=== PATIENT | female | born 1960 | race Caucasian/White ===

== ENCOUNTER 2020-02-05 12:30 | Inpatient (IN) | payer OTHER ==
--- NOTE | 2020-02-05 12:43 | BHS.RME ---
Substance Use & Tx History - Substance Use History Alcohol Substance amount: 1 liter vodka + 2 beers Frequency of use: Daily Substance route: Oral Date of Last Use: 02/05/20 (started age 21 last drank 2AM today) Nicotine Substance amount: 1t Frequency of use: Less than 3 times per week Substance route: Vaping Date of Last Use: 02/05/20 (started age 57) Physical/Psych/Mental Status - Behavior General Behavior: Increased activity (restlessness, agitation) Eye Contact: Normal - Cooperativeness Cooperativeness: Cooperative - Thinking Thought Processes: Tight, Logical, Goal Directed Thought content: Future oriented - Physical Health Problems Is patient presently having any pain?: No Does patient presently have any injuries (include location): No Does patient currently have a fever: No Is patient : No CIWA Nausea/Vomitin-Mild Nausea/No Vomiting Muscle Tremors: 3 Anxiety: 3 Agitation: 3 Paroxysmal Sweats: 2 Orientation: 1-Uncertain about Date Tacttile Disturbances: 0-None Auditory Disturbances: 0-None Visual Disturbances: 0-None Headache: 0-None Present (mild withdrawals due to recent alcohol use) CIWA-Ar Total Score: 13
[2020-02-05 12:57] VITALS: BMI 28.4
--- NOTE | 2020-02-05 13:19 | HP ---
CIWA Score Nausea/Vomitin-Mild Nausea/No Vomiting Muscle Tremors: 3 Anxiety: 3 Agitation: 3 Paroxysmal Sweats: 2 Orientation: 1-Uncertain about Date Tacttile Disturbances: 0-None Auditory Disturbances: 0-None Visual Disturbances: 0-None Headache: 0-None Present (mild withdrawals due to recent alcohol use) CIWA-Ar Total Score: 13 - Admission Criteria OASAS Guidelines: Admission for Medically Managed Detox: Requires at least one of the followin. CIWA greater than 12 2. Seizures within the past 24 hours 3. Delirium tremens within the past 24 hours 4. Hallucinations within the past 24 hours 5. Acute intervention needed for co occurring medical disorder 6. Acute intervention needed for co occurring psychiatric disorder 7. Severe withdrawal that cannot be handled at a lower level of care (continued vomiting, continued diarrhea, abnormal vital signs) requiring intravenous medication and/or fluids 8. Admitting History and Physical - Admission History of Present Illness: 59 yo F presenting for alcohol detox; "I have a big problem with alcohol, I can't stop...I dont know why." Pt was discharged from a hospital in [place] 10 days ago for uncontrolled DM (sugars in 700s). She was treated and sugars have been well-controlled since being discharged (reports sugars are well- controlled in the 120s since being discharged). Pt reports that she has a "liver problem" that was evaluated by doctors at [facility] 2 months ago. Pt is new to [facility]. PMH - DM (takes insulin; possible long-acting/short-acting), Chronic Lower Back Pain PSH - R sided hip replacement (Apr 2018) Psych - none Soc/Domiciled - Apt in [place] - , daughter, and grandson Legal - none Substance Use & Tx History - Substance Use History Alcohol Substance amount: 1 liter vodka + 2 beers Frequency of use: Daily Substance route: Oral Date of Last Use: 02/05/20 (started age 21 last drank 2AM today) Nicotine Substance amount: 1t Frequency of use: Less than 3 times per week Substance route: Vaping Date of Last Use: 02/05/20 (started age 57) History Source: Patient Limitations to Obtaining History: No Limitations Admission ROS S - Ebola screening Have you traveled outside of the country in the last 21 days: No Have you been sick,other than usual withdrawal symptoms: No Do you have a fever: No - Review of Systems Constitutional: Diaphoresis (mild sweating; trouble sleeping without drinking), Changes in sleep EENT: reports: Blurred Vision (farsighted with glasses) Respiratory: reports: No Symptoms reported Cardiac: reports: No Symptoms Reported GI: reports: Nausea : reports: No Symptoms Reported Musculoskeletal: reports: Back Pain (chronic lower back pain) Integumentary: reports: No Symptoms Reported Neuro: reports: No Symptoms reported Endocrine: reports: No Symptoms Reported Hematology: reports: No Symptoms Reported Psychiatric: reports: Agitated, Anxious, Depressed ("slightly depressed", no SI/HI) Patient History - Smoking Cessation Smoking history: Former smoker Have you smoked in the past 12 months: No Initiated information on smoking cessation: No 'Breaking Loose' booklet given: 02/05/[address] [facility] - Vital Signs Vital Signs: Vital Signs - 24 hr 02/05/20 12:56 Temperature 97.2 F L Pulse Rate 91 H Respiratory 20 Rate Blood Pressure 143/93 - Physical General Appearance: Yes: No Apparent Distress, Nourished, Appropriately Dressed, Anxious (restless) HEENTM: Yes: EOMI, Hearing grossly Normal, Normocephalic, Normal Voice Respiratory: Yes: Lungs Clear, Normal Breath Sounds, No Respiratory Distress, No Accessory Muscle Use Neck: Yes: Supple, Trachea in good position Breast: Yes: Breast Exam Deferred Cardiology: Yes: Regular Rhythm, Regular Rate Abdominal: Yes: Normal Bowel Sounds, Non Tender, Flat, Soft Genitourinary: Yes: Other (deferred) Back: Yes: Normal Inspection Musculoskeletal: Yes: Gait Steady Extremities: Yes: Normal Inspection, Non-Tender Neurological: Yes: Fully Oriented, Alert Integumentary: Yes: Normal Color, Dry, Warm Cleared for Admission S - Detox or Rehab [facility] Level of Care: Medically Managed Detox Regimen/Protocol: Librium Breathalyzer - Breathalyzer Breathalyzer: 0.142 Urine Drug Screen - Test Device Lot number: [id number] Expiration date: 08/21/21 - Control Is test valid?: Yes - Results Drug screen NEGATIVE: No Urine drug screen results: MTD-Methadone Inpatient Rehab Admission - Rehab Decision to Admit Inpatient rehab admission?: No
[2020-02-05] MEDS ORDERED: ONDANSETRON *ODT* 4 MG TABLET SL PRN (13:45)
[2020-02-05] MEDS ORDERED: MAG HYDROX/AL HYDROX/SIMETH 30 ML UNIT-DOSE CUP PO PRN (13:45)
[2020-02-05] MEDS ORDERED: NICOTINE POLACRILEX 2 MG GUM BUC PRN (13:45)
[2020-02-05] MEDS ORDERED: ACETAMINOPHEN 325 MG TABLET (FP) PO PRN ×2 (13:45)
[2020-02-05] MEDS ORDERED: MAGNESIUM HYDROX 2400MG/30ML ORAL SUSPENSION 30 ML CUP PO PRN (13:45)
[2020-02-05] MEDS ORDERED: MENTHOL/PHENOL 1 EACH UD MM PRN (13:45)
[2020-02-05] MEDS ORDERED: BISMUTH SUBSALICYLATE 262 MG/15 ML BTL PO PRN (13:45)
[2020-02-05] MEDS ORDERED: METHOCARBAMOL 500 MG TABLET PO PRN (13:45)
[2020-02-05] MEDS ORDERED: MAGNESIUM CITRATE 300 ML BOTTLE PO PRN (13:45)
[2020-02-05] MEDS ORDERED: IBUPROFEN 400 MG TABLET (FP) PO PRN (13:45)
[2020-02-05] MEDS: chlordiazePOXIDE HCL 25 MG CAPSULE PO PRN ×2 (15:30→19:28)
[2020-02-05] MEDS: hydrOXYzine PAMOATE 25 MG CAPSULE (FP) PO SCH ×2 (15:34→17:00)
--- OUTSIDE RECORDS SUMMARY | 2020-02-05 16:00 | XMS ---
:1960 Author Organization [facility] Support Name Relationship Address Phone UE Unavailable Unavailable Unavailable AMANDA DUMONT MOTHER [address] [place] [address] Re-disclosure Warning The records that you are about to access may contain information from federally- assisted alcohol or drug abuse programs. If such information is present, then the following federally mandated warning applies: This information has been disclosed to you from records protected by federal confidentiality rules (42 CFR part 2). The federal rules prohibit you from making any further disclosure of this information unless further disclosure is expressly permitted by the written consent of the person to whom it pertains or as otherwise permitted by 42 CFR part 2. A general authorization for the release of medical or other information is NOT sufficient for this purpose. The Federal rules restrict any use of the information to criminally investigate or prosecute any alcohol or drug abuse patient.The records that you are about to access may contain highly sensitive health information, the redisclosure of which is protected by Article 27-F of the [facility] Public Health law. If you continue you may haveaccess to information: Regarding HIV / AIDS; Provided by facilities licensed or operated by the [facility] Office of Mental Health; or Provided by the [facility] Office for People With Developmental Disabilities. If such information is present, then the following [facility] mandated warning applies: This information has been disclosed to you from confidential records which are protected by state law. State law prohibits you from making any further disclosure of this information without the specific written consent of the person to whom it pertains, or as otherwise permitted by law. Any unauthorized further disclosure in violation of state law may result in a fine or assisted sentence or both. A general authorization for the release of medical or other information is NOT sufficient authorization for further disclosure. Insurance Providers Payer name Policy type Policy ID Covered Covered constitution party's Policy P elmer / Coverage constitution party ID relationship to [employer] type [facility] [employer] [id number] SP [id number] FIRST [facility] [id number] SP [id number] FIRST
[2020-02-05] MEDS: INSULIN SLIDING SCALE (NOVOLOG) 1 VIAL SQ SCH ×2 (16:46→22:31)
[2020-02-05] MEDS ORDERED: chlordiazePOXIDE HCL 25 MG CAPSULE PO SCH (17:00)
[2020-02-05 17:32] LABS: ALBUMIN 3.2 g/dl (3.4-5.0); BILIRUBIN,TOTAL 1.1 mg/dL (0.2-1); CALCIUM 8.5 mg/dL (8.5-10.1); CREATININE 0.6 mg/dL (0.55-1.3); POTASSIUM 3.5 mmol/L (3.5-5.1)
[2020-02-05 17:40] LABS: BLOOD UREA NITROGEN 2.9 mg/dL (7-18)
[2020-02-05 17:51] LABS: HEMATOCRIT 44.3 % (32.4-45.2); HEMOGLOBIN 15.2 GM/dL (10.7-15.3); MCH 34.6 pg (25.7-33.7); MCHC 34.3 g/dl (32.0-36.0); MEAN CELL VOLUME 100.9 fl (80-96); MEAN PLT VOLUME 7.8 fl (7.5-11.1); PLATELET COUNT 127 K/MM3 (134-434); RBC 4.39 M/mm3 (3.60-5.2); RDW 14.9 % (11.6-15.6); WHITE BLOOD COUNT 5.6 K/mm3 (4.0-10.0)
[2020-02-05] MEDS ORDERED: hydrOXYzine PAMOATE 50 MG CAPSULE (FP) PO ONE (18:44)
[2020-02-05] MEDS ORDERED: TRIMETHOBENZAMIDE HCL 200MG/2ML INJ IM ONE (19:40)
[2020-02-05] MEDS ORDERED: LORazepam 2 MG/ML SDV VIAL IM ONE (19:41)
--- NOTE | 2020-02-05 19:52 | PN ---
BHS Progress Note Note: pt w/ nausea / vomiting , tremors Vital Signs - 24 hr 02/05/20 02/05/20 02/05/20 12:56 14:18 18:24 Temperature 97.2 F L 97.2 F L 98 F Pulse Rate 91 H 91 H 88 Respiratory 20 20 18 Rate Blood Pressure 143/93 143/93 145/87 O2 Sat by Pulse 98 Oximetry (%) CBC, BMP 02/05/20 14:10 02/05/20 14:10 P : Tigan i.m. , Ativan 2 mg i.m. once . D/c Librium taper, add Ativan taper.
[2020-02-05] MEDS ORDERED: LORazepam 1 MG TABLET PO PRN (21:45)
[2020-02-05] MEDS ORDERED: METOPROLOL TARTRATE 25 MG TABLET (FP) PO ONE (21:49)
[2020-02-05] MEDS: LORazepam 2 MG TABLET PO SCH (22:26)
[2020-02-05] MEDS: MELATONIN 5 MG TABLETS PO SCH (22:27)
[2020-02-05] MEDS: THIAMINE HCL 100 MG TABLET (FP) PO SCH (22:28)
[2020-02-06] MEDS: LORazepam 2 MG TABLET PO SCH ×4 (06:45→22:40)
[2020-02-06] MEDS: hydrOXYzine PAMOATE 25 MG CAPSULE (FP) PO SCH (06:46)
[2020-02-06] MEDS: INSULIN SLIDING SCALE (NOVOLOG) 1 VIAL SQ SCH ×4 (07:45→22:43)
--- NOTE | 2020-02-06 08:27 | PN ---
Teaching Attending Note Name of Resident: Haim Mcmahon ATTENDING PHYSICIAN STATEMENT I saw and evaluated the patient. I reviewed the resident's note and discussed the case with the resident. I agree with the resident's findings and plan as documented. SUBJECTIVE: OBJECTIVE: ASSESSMENT AND PLAN: 1. Alcohol withdrawal/uncomplicated Plan 1. Ativan detox protocol
[2020-02-06] MEDS ORDERED: METHADONE HCL 40 MG DISPERSABLE TABLET PO ONE (10:00)
[2020-02-06] MEDS: PRENATAL VITAMINS W/ FOLIC ACID TABLET (FP) PO SCH (10:35)
--- NOTE | 2020-02-06 13:45 | PN ---
[facility] CIWA - CIWA Score Nausea/Vomitin-Mild Nausea/No Vomiting Muscle Tremors: 3 Anxiety: 2 Agitation: 3 Paroxysmal Sweats: 2 Orientation: 0-Oriented Tacttile Disturbances: 0-None Auditory Disturbances: 0-None Visual Disturbances: 0-None Headache: 0-None Present CIWA-Ar Total Score: 11 S Progress Note (SOAP) Subjective: sweats restless nausea interrupted sleep chronic body aches Objective: 02/06/20 13:44 Vital Signs Temperature 96.9 F L 02/06/20 08:45 Pulse Rate 84 02/06/20 08:45 Respiratory Rate 18 02/06/20 08:45 Blood Pressure 102/59 L 02/06/20 08:45 O2 Sat by Pulse Oximetry (%) 100 02/06/20 08:45 Laboratory Tests 02/05/20 02/05/20 02/05/20 14:10 14:10 14:10 WBC 5.6 RBC 4.39 Hgb 15.2 Hct 44.3 MCV 100.9 H MCH 34.6 H MCHC 34.3 RDW 14.9 Plt Count 127 L MPV 7.8 Sodium 140 Potassium 3.5 Chloride 103 Carbon Dioxide 27 Anion Gap 10 BUN 2.9 L* Creatinine 0.6 Est GFR (CKD-EPI)AfAm 116.45 Est GFR (CKD-EPI)NonAf 100.47 POC Glucometer Random Glucose 170 H Calcium 8.5 Total Bilirubin 1.1 H AST 175 H ALT 58 Alkaline Phosphatase 248 H Total Protein 8.0 Albumin 3.2 L Syphilis Serology Non-reactive 02/05/20 02/05/20 02/05/20 14:52 16:45 22:30 WBC RBC Hgb Hct MCV MCH MCHC RDW Plt Count MPV Sodium Potassium Chloride Carbon Dioxide Anion Gap BUN Creatinine Est GFR (CKD-EPI)AfAm Est GFR (CKD-EPI)NonAf POC Glucometer 140 178 141 Random Glucose Calcium Total Bilirubin AST ALT Alkaline Phosphatase Total Protein Albumin Syphilis Serology 02/06/20 06:51 WBC RBC Hgb Hct MCV MCH MCHC RDW Plt Count MPV Sodium Potassium Chloride Carbon Dioxide Anion Gap BUN Creatinine Est GFR (CKD-EPI)AfAm Est GFR (CKD-EPI)NonAf POC Glucometer 134 Random Glucose Calcium Total Bilirubin AST ALT Alkaline Phosphatase Total Protein Albumin Syphilis Serology labs noted aaox3 ambulating safety with rollator no acute distress repeat lab Assessment: 02/06/20 13:45 withdrawals Plan: continue detox increase fluids repeat labs
--- NOTE | 2020-02-06 13:56 | EKG ---
Test Reason : Blood Pressure : / mmHG Vent. Rate : 070 BPM Atrial Rate : 070 BPM P-R Int : 138 ms QRS Dur : 080 ms QT Int : 460 ms P-R-T Axes : 050 004 036 degrees QTc Int : 496 ms NORMAL SINUS RHYTHM CANNOT RULE OUT ANTERIOR INFARCT , AGE UNDETERMINED ABNORMAL ECG NO PREVIOUS ECGS AVAILABLE Confirmed by Hemal Giles ([id number]) on 02/06/2020 1:55:50 PM Referred By: Confirmed By:Hemal Giles
[2020-02-06] MEDS: THIAMINE HCL 100 MG TABLET (FP) PO SCH (22:40)
[2020-02-06] MEDS: MELATONIN 5 MG TABLETS PO SCH (22:42)
[2020-02-07] MEDS ORDERED: chlordiazePOXIDE HCL 25 MG CAPSULE PO SCH (05:00)
[2020-02-07] MEDS: METHADONE HCL 40 MG DISPERSABLE TABLET PO SCH (05:12)
[2020-02-07] MEDS: LORazepam 1 MG TABLET PO SCH ×4 (05:12→22:21)
[2020-02-07] MEDS: hydrOXYzine PAMOATE 25 MG CAPSULE (FP) PO PRN ×2 (05:12→10:19)
[2020-02-07] MEDS: INSULIN SLIDING SCALE (NOVOLOG) 1 VIAL SQ SCH ×4 (07:26→22:25)
[2020-02-07 10:55] LABS: BASO % 0.6 % (0-2.0); EOS % 2.9 % (0-4.5); HEMATOCRIT 40.5 % (32.4-45.2); HEMOGLOBIN 13.3 GM/dL (10.7-15.3); LYMPH % 46.3 % (8-40); MCH 33.2 pg (25.7-33.7); MCHC 32.8 g/dl (32.0-36.0); MEAN CELL VOLUME 101.3 fl (80-96); MEAN PLT VOLUME 8.3 fl (7.5-11.1); MONO % 7.6 % (3.8-10.2); NEUT % 42.6 % (42.8-82.8); PLATELET COUNT 109 K/MM3 (134-434); RBC 3.99 M/mm3 (3.60-5.2); RDW 14.8 % (11.6-15.6); WHITE BLOOD COUNT 6.4 K/mm3 (4.0-10.0)
[2020-02-07 11:05] LABS: ALBUMIN 2.8 g/dl (3.4-5.0); BILIRUBIN,TOTAL 1.2 mg/dL (0.2-1); CREATININE 0.7 mg/dL (0.55-1.3)
[2020-02-07 11:08] LABS: CALCIUM 8.6 mg/dL (8.5-10.1)
[2020-02-07] MEDS: PRENATAL VITAMINS W/ FOLIC ACID TABLET (FP) PO SCH (12:07)
--- NOTE | 2020-02-07 14:46 | PN ---
S CIWA - CIWA Score Nausea/Vomitin-No Nausea/No Vomiting Muscle Tremors: 3 Anxiety: 2 Agitation: 2 Paroxysmal Sweats: 3 Orientation: 0-Oriented Tacttile Disturbances: 0-None Auditory Disturbances: 0-None Visual Disturbances: 0-None Headache: 0-None Present CIWA-Ar Total Score: 10 S Progress Note (SOAP) Subjective: agitation sweats shakes interrupted sleep Objective: 02/07/20 14:46 Vital Signs Temperature 96.6 F L 02/07/20 09:24 Pulse Rate 79 02/07/20 09:24 Respiratory Rate 20 02/07/20 09:24 Blood Pressure 160/70 02/07/20 09:24 O2 Sat by Pulse Oximetry (%) 99 02/07/20 09:24 Laboratory Tests 02/05/20 02/05/20 02/05/20 14:10 14:10 14:10 WBC 5.6 RBC 4.39 Hgb 15.2 Hct 44.3 MCV 100.9 H MCH 34.6 H MCHC 34.3 RDW 14.9 Plt Count 127 L MPV 7.8 Absolute Neuts (auto) Neutrophils % Lymphocytes % Monocytes % Eosinophils % Basophils % Nucleated RBC % Sodium 140 Potassium 3.5 Chloride 103 Carbon Dioxide 27 Anion Gap 10 BUN 2.9 L* Creatinine 0.6 Est GFR (CKD-EPI)AfAm 116.45 Est GFR (CKD-EPI)NonAf 100.47 POC Glucometer Random Glucose 170 H Calcium 8.5 Total Bilirubin 1.1 H AST 175 H ALT 58 Alkaline Phosphatase 248 H Total Protein 8.0 Albumin 3.2 L Syphilis Serology Non-reactive COVID-19 (DANIA) 02/05/20 02/05/20 02/05/20 14:52 15:00 16:45 WBC RBC Hgb Hct MCV MCH MCHC RDW Plt Count MPV Absolute Neuts (auto) Neutrophils % Lymphocytes % Monocytes % Eosinophils % Basophils % Nucleated RBC % Sodium Potassium Chloride Carbon Dioxide Anion Gap BUN Creatinine Est GFR (CKD-EPI)AfAm Est GFR (CKD-EPI)NonAf POC Glucometer 140 178 Random Glucose Calcium Total Bilirubin AST ALT Alkaline Phosphatase Total Protein Albumin Syphilis Serology COVID-19 (DANIA) Not detected 02/05/20 02/06/20 02/06/20 22:30 06:51 18:23 WBC RBC Hgb Hct MCV MCH MCHC RDW Plt Count MPV Absolute Neuts (auto) Neutrophils % Lymphocytes % Monocytes % Eosinophils % Basophils % Nucleated RBC % Sodium Potassium Chloride Carbon Dioxide Anion Gap BUN Creatinine Est GFR (CKD-EPI)AfAm Est GFR (CKD-EPI)NonAf POC Glucometer 141 134 156 Random Glucose Calcium Total Bilirubin AST ALT Alkaline Phosphatase Total Protein Albumin Syphilis Serology COVID-19 (DANIA) 02/06/20 02/07/20 02/07/20 22:36 05:11 07:50 WBC 6.4 RBC 3.99 Hgb 13.3 Hct 40.5 MCV 101.3 H MCH 33.2 MCHC 32.8 RDW 14.8 Plt Count 109 L MPV 8.3 Absolute Neuts (auto) 2.7 Neutrophils % 42.6 L Lymphocytes % 46.3 H Monocytes % 7.6 Eosinophils % 2.9 Basophils % 0.6 Nucleated RBC % 0 Sodium Potassium Chloride Carbon Dioxide Anion Gap BUN Creatinine Est GFR (CKD-EPI)AfAm Est GFR (CKD-EPI)NonAf POC Glucometer 180 197 Random Glucose Calcium Total Bilirubin AST ALT Alkaline Phosphatase Total Protein Albumin Syphilis Serology COVID-19 (DANIA) 02/07/20 07:50 WBC RBC Hgb Hct MCV MCH MCHC RDW Plt Count MPV Absolute Neuts (auto) Neutrophils % Lymphocytes % Monocytes % Eosinophils % Basophils % Nucleated RBC % Sodium 140 Potassium 4.0 Chloride 104 Carbon Dioxide 29 Anion Gap 6 L BUN 7.0 Creatinine 0.7 Est GFR (CKD-EPI)AfAm 110.69 Est GFR (CKD-EPI)NonAf 95.50 POC Glucometer Random Glucose 152 H Calcium 8.6 Total Bilirubin 1.2 H AST 109 H ALT 45 Alkaline Phosphatase 193 H Total Protein 7.0 Albumin 2.8 L Syphilis Serology COVID-19 (DANIA) repeated labs noted and there is improvement noted with potassium, liver enzymes, BUN aaox3 ambulating no acute distress Assessment: 02/07/20 14:48 withdrawals Plan: continue detox increase fluids
[2020-02-07] MEDS: THIAMINE HCL 100 MG TABLET (FP) PO SCH (22:21)
[2020-02-07] MEDS: MELATONIN 5 MG TABLETS PO SCH (22:21)
[2020-02-08] MEDS ORDERED: LORazepam 0.5 MG TABLET PO PRN
[2020-02-08] MEDS ORDERED: chlordiazePOXIDE HCL 10 MG CAPSULE PO PRN
[2020-02-08] MEDS ORDERED: chlordiazePOXIDE HCL 10 MG CAPSULE PO SCH (05:00)
[2020-02-08] MEDS: METHADONE HCL 40 MG DISPERSABLE TABLET PO SCH (05:11)
[2020-02-08] MEDS: LORazepam 0.5 MG TABLET PO SCH ×3 (05:11→16:59)
[2020-02-08] MEDS: INSULIN SLIDING SCALE (NOVOLOG) 1 VIAL SQ SCH ×3 (07:45→16:56)
[2020-02-08] MEDS ORDERED: PANTOPRAZOLE 40 MG TABLET PO SCH (10:00)
[2020-02-08] MEDS: PRENATAL VITAMINS W/ FOLIC ACID TABLET (FP) PO SCH (10:06)
--- NOTE | 2020-02-08 15:22 | PN ---
S CIWA - CIWA Score Nausea/Vomitin-No Nausea/No Vomiting Muscle Tremors: 2 Anxiety: 2 Agitation: 2 Paroxysmal Sweats: 2 Orientation: 0-Oriented Tacttile Disturbances: 0-None Auditory Disturbances: 0-None Visual Disturbances: 0-None Headache: 0-None Present CIWA-Ar Total Score: 8 BHS Progress Note (SOAP) Subjective: sweats shakes body aches acid reflux Objective: 02/08/20 15:23 Vital Signs Temperature 96.8 F L 02/08/20 13:06 Pulse Rate 75 02/08/20 13:06 Respiratory Rate 17 02/08/20 13:06 Blood Pressure 110/57 L 02/08/20 13:06 O2 Sat by Pulse Oximetry (%) 95 02/08/20 13:06 Laboratory Tests 02/05/20 02/05/20 02/05/20 14:10 14:10 14:10 WBC 5.6 RBC 4.39 Hgb 15.2 Hct 44.3 MCV 100.9 H MCH 34.6 H MCHC 34.3 RDW 14.9 Plt Count 127 L MPV 7.8 Absolute Neuts (auto) Neutrophils % Lymphocytes % Monocytes % Eosinophils % Basophils % Nucleated RBC % Sodium 140 Potassium 3.5 Chloride 103 Carbon Dioxide 27 Anion Gap 10 BUN 2.9 L* Creatinine 0.6 Est GFR (CKD-EPI)AfAm 116.45 Est GFR (CKD-EPI)NonAf 100.47 POC Glucometer Random Glucose 170 H Calcium 8.5 Total Bilirubin 1.1 H AST 175 H ALT 58 Alkaline Phosphatase 248 H Total Protein 8.0 Albumin 3.2 L Syphilis Serology Non-reactive COVID-19 (DANIA) 02/05/20 02/05/20 02/05/20 14:52 15:00 16:45 WBC RBC Hgb Hct MCV MCH MCHC RDW Plt Count MPV Absolute Neuts (auto) Neutrophils % Lymphocytes % Monocytes % Eosinophils % Basophils % Nucleated RBC % Sodium Potassium Chloride Carbon Dioxide Anion Gap BUN Creatinine Est GFR (CKD-EPI)AfAm Est GFR (CKD-EPI)NonAf POC Glucometer 140 178 Random Glucose Calcium Total Bilirubin AST ALT Alkaline Phosphatase Total Protein Albumin Syphilis Serology COVID-19 (DANIA) Not detected 02/05/20 02/06/20 02/06/20 22:30 06:51 18:23 WBC RBC Hgb Hct MCV MCH MCHC RDW Plt Count MPV Absolute Neuts (auto) Neutrophils % Lymphocytes % Monocytes % Eosinophils % Basophils % Nucleated RBC % Sodium Potassium Chloride Carbon Dioxide Anion Gap BUN Creatinine Est GFR (CKD-EPI)AfAm Est GFR (CKD-EPI)NonAf POC Glucometer 141 134 156 Random Glucose Calcium Total Bilirubin AST ALT Alkaline Phosphatase Total Protein Albumin Syphilis Serology COVID-19 (DANIA) 02/06/20 02/07/20 02/07/20 22:36 05:11 07:50 WBC 6.4 RBC 3.99 Hgb 13.3 Hct 40.5 MCV 101.3 H MCH 33.2 MCHC 32.8 RDW 14.8 Plt Count 109 L MPV 8.3 Absolute Neuts (auto) 2.7 Neutrophils % 42.6 L Lymphocytes % 46.3 H Monocytes % 7.6 Eosinophils % 2.9 Basophils % 0.6 Nucleated RBC % 0 Sodium Potassium Chloride Carbon Dioxide Anion Gap BUN Creatinine Est GFR (CKD-EPI)AfAm Est GFR (CKD-EPI)NonAf POC Glucometer 180 197 Random Glucose Calcium Total Bilirubin AST ALT Alkaline Phosphatase Total Protein Albumin Syphilis Serology COVID-19 (DANIA) 02/07/20 02/07/20 02/07/20 07:50 17:01 22:24 WBC RBC Hgb Hct MCV MCH MCHC RDW Plt Count MPV Absolute Neuts (auto) Neutrophils % Lymphocytes % Monocytes % Eosinophils % Basophils % Nucleated RBC % Sodium 140 Potassium 4.0 Chloride 104 Carbon Dioxide 29 Anion Gap 6 L BUN 7.0 Creatinine 0.7 Est GFR (CKD-EPI)AfAm 110.69 Est GFR (CKD-EPI)NonAf 95.50 POC Glucometer 115 256 Random Glucose 152 H Calcium 8.6 Total Bilirubin 1.2 H AST 109 H ALT 45 Alkaline Phosphatase 193 H Total Protein 7.0 Albumin 2.8 L Syphilis Serology COVID-19 (DANIA) 02/08/20 05:10 WBC RBC Hgb Hct MCV MCH MCHC RDW Plt Count MPV Absolute Neuts (auto) Neutrophils % Lymphocytes % Monocytes % Eosinophils % Basophils % Nucleated RBC % Sodium Potassium Chloride Carbon Dioxide Anion Gap BUN Creatinine Est GFR (CKD-EPI)AfAm Est GFR (CKD-EPI)NonAf POC Glucometer 132 Random Glucose Calcium Total Bilirubin AST ALT Alkaline Phosphatase Total Protein Albumin Syphilis Serology COVID-19 (DANIA) labs noted aaox3 ambulating no acute distress Assessment: 02/08/20 15:23 withdrawals Plan: continue detox protonix 40mg daily increase fluids
[2020-02-08] MEDS: hydrOXYzine PAMOATE 25 MG CAPSULE (FP) PO PRN ×2 (18:14→21:02)
[2020-02-08] MEDS: MELATONIN 5 MG TABLETS PO SCH (21:03)
[2020-02-08] MEDS: THIAMINE HCL 100 MG TABLET (FP) PO SCH (21:03)
[2020-02-09] MEDS: INSULIN SLIDING SCALE (NOVOLOG) 1 VIAL SQ SCH ×2 (00:12→07:01)
[2020-02-09] MEDS: LORazepam 0.5 MG TABLET PO SCH (00:12)
[2020-02-09] MEDS ORDERED: chlordiazePOXIDE HCL 10 MG CAPSULE PO SCH (05:00)
[2020-02-09] MEDS ORDERED: LORazepam 0.5 MG TABLET PO ONE (05:00)
[2020-02-09] MEDS: METHADONE HCL 40 MG DISPERSABLE TABLET PO SCH (06:58)
[2020-02-09] MEDS ORDERED: INSULIN SLIDING SCALE (NOVOLOG) 1 VIAL SQ ONE (07:03)
[2020-02-09 09:31] VITALS: BP 108/62; PULSE 87; TEMP 98.1
--- NOTE | 2020-02-09 18:08 | DS ---
[facility] Detox Discharge Summary Admission Date: 02/05/20 Discharge Date: 02/09/20 - History Present History: Alcohol Dependence Additional Comments: Patient returning home and will seek out local Outpatient Program for aftercare on her own. Patient was Discharged from Detox Unit in stable medical condition. Pertinent Past History: DM, Chronic Low Back Pain. - Physical Exam Results Vital Signs: Vital Signs Temperature 98.1 F 02/09/20 08:37 Pulse Rate 87 02/09/20 08:37 Respiratory Rate 16 02/09/20 08:37 Blood Pressure 108/62 02/09/20 08:37 O2 Sat by Pulse Oximetry (%) 98 02/09/20 06:29 Pertinent Admission Physical Exam Findings: WITHDRAWAL SYMPTOMS. Laboratory Tests 02/05/20 02/05/20 02/05/20 14:10 14:10 14:10 WBC 5.6 RBC 4.39 Hgb 15.2 Hct 44.3 MCV 100.9 H MCH 34.6 H MCHC 34.3 RDW 14.9 Plt Count 127 L MPV 7.8 Absolute Neuts (auto) Neutrophils % Lymphocytes % Monocytes % Eosinophils % Basophils % Nucleated RBC % Sodium 140 Potassium 3.5 Chloride 103 Carbon Dioxide 27 Anion Gap 10 BUN 2.9 L* Creatinine 0.6 Est GFR (CKD-EPI)AfAm 116.45 Est GFR (CKD-EPI)NonAf 100.47 POC Glucometer Random Glucose 170 H Calcium 8.5 Total Bilirubin 1.1 H AST 175 H ALT 58 Alkaline Phosphatase 248 H Total Protein 8.0 Albumin 3.2 L Syphilis Serology Non-reactive COVID-19 (DANIA) 02/05/20 02/05/20 02/05/20 14:52 15:00 16:45 WBC RBC Hgb Hct MCV MCH MCHC RDW Plt Count MPV Absolute Neuts (auto) Neutrophils % Lymphocytes % Monocytes % Eosinophils % Basophils % Nucleated RBC % Sodium Potassium Chloride Carbon Dioxide Anion Gap BUN Creatinine Est GFR (CKD-EPI)AfAm Est GFR (CKD-EPI)NonAf POC Glucometer 140 178 Random Glucose Calcium Total Bilirubin AST ALT Alkaline Phosphatase Total Protein Albumin Syphilis Serology COVID-19 (DANIA) Not detected 02/05/20 02/06/20 02/06/20 22:30 06:51 18:23 WBC RBC Hgb Hct MCV MCH MCHC RDW Plt Count MPV Absolute Neuts (auto) Neutrophils % Lymphocytes % Monocytes % Eosinophils % Basophils % Nucleated RBC % Sodium Potassium Chloride Carbon Dioxide Anion Gap BUN Creatinine Est GFR (CKD-EPI)AfAm Est GFR (CKD-EPI)NonAf POC Glucometer 141 134 156 Random Glucose Calcium Total Bilirubin AST ALT Alkaline Phosphatase Total Protein Albumin Syphilis Serology COVID-19 (DANIA) 02/06/20 02/07/20 02/07/20 22:36 05:11 07:50 WBC 6.4 RBC 3.99 Hgb 13.3 Hct 40.5 MCV 101.3 H MCH 33.2 MCHC 32.8 RDW 14.8 Plt Count 109 L MPV 8.3 Absolute Neuts (auto) 2.7 Neutrophils % 42.6 L Lymphocytes % 46.3 H Monocytes % 7.6 Eosinophils % 2.9 Basophils % 0.6 Nucleated RBC % 0 Sodium Potassium Chloride Carbon Dioxide Anion Gap BUN Creatinine Est GFR (CKD-EPI)AfAm Est GFR (CKD-EPI)NonAf POC Glucometer 180 197 Random Glucose Calcium Total Bilirubin AST ALT Alkaline Phosphatase Total Protein Albumin Syphilis Serology COVID-19 (DANIA) 02/07/20 02/07/20 02/07/20 07:50 17:01 22:24 WBC RBC Hgb Hct MCV MCH MCHC RDW Plt Count MPV Absolute Neuts (auto) Neutrophils % Lymphocytes % Monocytes % Eosinophils % Basophils % Nucleated RBC % Sodium 140 Potassium 4.0 Chloride 104 Carbon Dioxide 29 Anion Gap 6 L BUN 7.0 Creatinine 0.7 Est GFR (CKD-EPI)AfAm 110.69 Est GFR (CKD-EPI)NonAf 95.50 POC Glucometer 115 256 Random Glucose 152 H Calcium 8.6 Total Bilirubin 1.2 H AST 109 H ALT 45 Alkaline Phosphatase 193 H Total Protein 7.0 Albumin 2.8 L Syphilis Serology COVID-19 (DANIA) 02/08/20 02/08/20 02/08/20 05:10 16:29 21:08 WBC RBC Hgb Hct MCV MCH MCHC RDW Plt Count MPV Absolute Neuts (auto) Neutrophils % Lymphocytes % Monocytes % Eosinophils % Basophils % Nucleated RBC % Sodium Potassium Chloride Carbon Dioxide Anion Gap BUN Creatinine Est GFR (CKD-EPI)AfAm Est GFR (CKD-EPI)NonAf POC Glucometer 132 155 121 Random Glucose Calcium Total Bilirubin AST ALT Alkaline Phosphatase Total Protein Albumin Syphilis Serology COVID-19 (DANIA) 02/09/20 06:59 WBC RBC Hgb Hct MCV MCH MCHC RDW Plt Count MPV Absolute Neuts (auto) Neutrophils % Lymphocytes % Monocytes % Eosinophils % Basophils % Nucleated RBC % Sodium Potassium Chloride Carbon Dioxide Anion Gap BUN Creatinine Est GFR (CKD-EPI)AfAm Est GFR (CKD-EPI)NonAf POC Glucometer 160 Random Glucose Calcium Total Bilirubin AST ALT Alkaline Phosphatase Total Protein Albumin Syphilis Serology COVID-19 (DANIA) LAB RESULT NOTED. - Treatment Hospital Course: Detox Protocol Followed, Detoxed Safely, Responded well, Discharged Condition Good Patient has Accepted a Rehab Referral to: Patient will attend local Outpatient Program for aftercare. 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
[2020-02-10] MEDS ORDERED: chlordiazePOXIDE HCL 10 MG CAPSULE PO ONE (05:00)
== END 2020-02-09 09:42 | disposition home or self-care (01) | DRG 775 ==
LOC: YASAS 12:30 → Y6N 14:23
PROVIDERS: ADMIT Allergy & Immunology; ATTEND Allergy & Immunology
PROC: HZ2ZZZZ Detoxification Services for Substance Abuse Treatment (ICD-10-PCS; principal; 2020-02-05)
DX: F10.230 Alcohol dependence with withdrawal, uncomplicated (principal); F17.210 Nicotine dependence, cigarettes, uncomplicated; E11.9 Type 2 diabetes mellitus without complications; Z79.4 Long term (current) use of insulin; M54.5 Low back pain; G89.29 Other chronic pain; Z96.641 Presence of right artificial hip joint; Z99.89 Dependence on other enabling machines and devices; Z88.2 Allergy status to sulfonamides
CPT/HCPCS: 36415; 80053; 82962; 85025; 85027; 86780; 93005; 93010; U0003

== ENCOUNTER 2020-08-28 19:08 | Inpatient (IN) | payer OTHER ==
[2020-08-28] MEDS ORDERED: ONDANSETRON *ODT* 4 MG TABLET SL PRN (21:23)
[2020-08-28] MEDS ORDERED: MAG HYDROX/AL HYDROX/SIMETH 30 ML UNIT-DOSE CUP PO PRN (21:23)
[2020-08-28] MEDS ORDERED: BISMUTH SUBSALICYLATE 524 MG/30 ML UD PO PRN (21:23)
[2020-08-28] MEDS ORDERED: MAGNESIUM CITRATE 300 ML BOTTLE PO PRN (21:23)
[2020-08-28] MEDS ORDERED: MAGNESIUM HYDROX 2400MG/30ML ORAL SUSPENSION 30 ML CUP PO PRN (21:23)
[2020-08-28] MEDS ORDERED: NICOTINE POLACRILEX 2 MG GUM BUC PRN (21:23)
[2020-08-28] MEDS ORDERED: MENTHOL/PHENOL 1 EACH UD MM PRN (21:23)
[2020-08-28] MEDS ORDERED: METHOCARBAMOL 500 MG TABLET PO PRN (21:23)
[2020-08-28] MEDS ORDERED: IBUPROFEN 400 MG TABLET (FP) PO PRN (21:23)
[2020-08-28] MEDS ORDERED: MELATONIN 5 MG TABLETS PO SCH (22:00)
[2020-08-28 22:05] VITALS: BMI 29.7
[2020-08-29] MEDS ORDERED: hydrOXYzine PAMOATE 25 MG CAPSULE (FP) PO ONE ×2 (00:44→06:51)
[2020-08-29] MEDS ORDERED: LORazepam 2 MG TABLET ONE ×2 (00:44→04:06)
[2020-08-29] MEDS ORDERED: TRIMETHOBENZAMIDE HCL 200MG/2ML INJ IM ONE (00:45)
[2020-08-29] MEDS: THIAMINE HCL 100 MG TABLET (FP) PO SCH ×2 (00:51→22:21)
[2020-08-29] MEDS: LORazepam 2 MG TABLET PO SCH ×5 (00:51→22:21)
[2020-08-29] MEDS ORDERED: INSULIN (NOVOLOG) ASPART 100 UNITS/ML 10ML VIAL ONE (01:15)
[2020-08-29] MEDS: INSULIN SLIDING SCALE (NOVOLOG) 1 VIAL SQ SCH ×5 (01:17→22:25)
[2020-08-29] MEDS: hydrOXYzine PAMOATE 25 MG CAPSULE (FP) PO PRN ×2 (01:20→06:52)
[2020-08-29] MEDS ORDERED: ONDANSETRON *ODT* 4 MG TABLET ONE (01:22)
[2020-08-29] MEDS ORDERED: LORazepam 1 MG TABLET ONE (06:50)
[2020-08-29] MEDS: LORazepam 1 MG TABLET PO PRN (06:52)
[2020-08-29] MEDS: METHADONE HCL 40 MG DISPERSABLE TABLET PO SCH (10:23)
[2020-08-29] MEDS: PRENATAL VITAMINS W/ FOLIC ACID TABLET (FP) PO SCH (10:23)
[2020-08-29] MEDS ORDERED: MELATONIN 5 MG TABLETS PO PRN (10:33)
[2020-08-29 12:17] LABS: HEMOGLOBIN 13.6 GM/dL (10.7-15.3); MCHC 34.9 g/dl (32.0-36.0); MEAN CELL VOLUME 100.5 fl (80-96); MEAN PLT VOLUME 8.9 fl (7.5-11.1); PLATELET COUNT 107 K/MM3 (134-434); RBC 3.88 M/mm3 (3.60-5.2); RDW 14.3 % (11.6-15.6); WHITE BLOOD COUNT 6.4 K/mm3 (4.0-10.0)
[2020-08-29 12:21] LABS: ALBUMIN 3.7 g/dl (3.4-5.0); BLOOD UREA NITROGEN 6.2 mg/dL (7-18)
[2020-08-29 12:31] LABS: BILIRUBIN,TOTAL 2.4 mg/dL (0.2-1); TOT PROT 8.3 g/dl (6.4-8.2)
[2020-08-29 12:34] LABS: CREATININE 0.6 mg/dL (0.55-1.3)
[2020-08-29] MEDS: GABAPENTIN 300 MG CAPSULE PO SCH ×2 (13:50→22:20)
[2020-08-30] MEDS: METHADONE HCL 40 MG DISPERSABLE TABLET PO SCH (05:52)
[2020-08-30] MEDS: LORazepam 1 MG TABLET PO SCH ×3 (05:53→17:32)
[2020-08-30] MEDS: GABAPENTIN 300 MG CAPSULE PO SCH ×2 (05:53→13:18)
[2020-08-30] MEDS: INSULIN SLIDING SCALE (NOVOLOG) 1 VIAL SQ SCH ×3 (06:32→17:32)
[2020-08-30] MEDS: PRENATAL VITAMINS W/ FOLIC ACID TABLET (FP) PO SCH (10:32)
[2020-08-30] MEDS: LORazepam 1 MG TABLET PO PRN (15:44)
[2020-08-30] MEDS: LIDOCAINE 5% TOPICAL PATCH TP SCH (17:32)
[2020-08-30] MEDS ORDERED: LORazepam 0.5 MG TABLET ONE (20:35)
[2020-08-31] MEDS: LORazepam 1 MG TABLET PO SCH
[2020-08-31] MEDS ORDERED: LORazepam 0.5 MG TABLET PO PRN
[2020-08-31] MEDS: INSULIN SLIDING SCALE (NOVOLOG) 1 VIAL SQ SCH ×5 (00:01→22:06)
[2020-08-31] MEDS: THIAMINE HCL 100 MG TABLET (FP) PO SCH ×2 (00:01→22:05)
[2020-08-31] MEDS: METHADONE HCL 40 MG DISPERSABLE TABLET PO SCH (05:08)
[2020-08-31] MEDS: LORazepam 0.5 MG TABLET PO SCH ×4 (05:08→22:05)
[2020-08-31] MEDS: GABAPENTIN 300 MG CAPSULE PO SCH ×4 (05:10→22:05)
[2020-08-31 08:08] LABS: SARS-CoV-2 NAA Not Detected (Not Detected)
[2020-08-31] MEDS: LIDOCAINE 5% TOPICAL PATCH TP SCH (10:08)
[2020-08-31] MEDS: PRENATAL VITAMINS W/ FOLIC ACID TABLET (FP) PO SCH (10:08)
[2020-08-31 10:48] LABS: ALBUMIN 3.5 g/dl (3.4-5.0)
[2020-08-31 10:50] LABS: BILIRUBIN,TOTAL 4.8 mg/dL (0.2-1)
[2020-08-31 10:57] LABS: BILIRUBIN,DIRECT 3.4 mg/dL (0.0-0.2)
[2020-08-31] MEDS: LIDOCAINE PATCH REMOVAL MC SCH ×2 (22:07)
[2020-09-01] MEDS ORDERED: LORazepam 0.5 MG TABLET PO ONE (05:00)
[2020-09-01] MEDS: METHADONE HCL 40 MG DISPERSABLE TABLET PO SCH (05:30)
[2020-09-01] MEDS: GABAPENTIN 300 MG CAPSULE PO SCH (05:30)
[2020-09-01] MEDS: INSULIN SLIDING SCALE (NOVOLOG) 1 VIAL SQ SCH (07:52)
[2020-09-01 09:13] VITALS: BP 144/73; PULSE 85; TEMP 98.6
== END 2020-09-01 09:32 | disposition home or self-care (01) | DRG 775 ==
LOC: YASAS 19:08 → Y6N 08-29 09:07
PROVIDERS: ADMIT Allergy & Immunology; ATTEND Allergy & Immunology
PROC: HZ2ZZZZ Detoxification Services for Substance Abuse Treatment (ICD-10-PCS; principal; 2020-08-29)
DX: F10.230 Alcohol dependence with withdrawal, uncomplicated (principal); F10.280 Alcohol dependence with alcohol-induced anxiety disorder; F19.24 Other psychoactive substance dependence with psychoactive substance-induced mood disorder; F10.282 Alcohol dependence with alcohol-induced sleep disorder; F10.220 Alcohol dependence with intoxication, uncomplicated; E13.9 Other specified diabetes mellitus without complications; Z79.4 Long term (current) use of insulin; E80.6 Other disorders of bilirubin metabolism; R74.01 Elevation of levels of liver transaminase levels; R74.8 Abnormal levels of other serum enzymes; K00.0 Anodontia; R26.89 Other abnormalities of gait and mobility; M54.5 Low back pain; G89.29 Other chronic pain; Z96.641 Presence of right artificial hip joint; Z99.89 Dependence on other enabling machines and devices; Z87.891 Personal history of nicotine dependence; Z88.2 Allergy status to sulfonamides
CPT/HCPCS: 36415; 80053; 80076; 82962; 85027; 86780; C9803; U0003; U0005

== ENCOUNTER 2020-12-25 14:42 | Inpatient (IN) | payer OTHER ==
[2020-12-25 15:55] VITALS: BMI 29.1
[2020-12-25] MEDS ORDERED: MAG HYDROX/AL HYDROX/SIMETH 30 ML UNIT-DOSE CUP PO PRN (17:32)
[2020-12-25] MEDS ORDERED: MAGNESIUM CITRATE 300 ML BOTTLE PO PRN (17:32)
[2020-12-25] MEDS ORDERED: ONDANSETRON *ODT* 4 MG TABLET SL PRN (17:32)
[2020-12-25] MEDS ORDERED: NICOTINE 10 MG CARTRIDGE (INHALER) IH PRN (17:32)
[2020-12-25] MEDS ORDERED: ACETAMINOPHEN 325 MG TABLET (FP) PO PRN ×2 (17:32)
[2020-12-25] MEDS ORDERED: MENTHOL/PHENOL 1 EACH UD MM PRN (17:32)
[2020-12-25] MEDS ORDERED: BISMUTH SUBSALICYLATE 524 MG/30 ML PO PRN (17:32)
[2020-12-25] MEDS: LORazepam 1 MG TABLET PO PRN (19:45)
[2020-12-25] MEDS: LORazepam 2 MG TABLET PO SCH ×2 (19:47→22:06)
[2020-12-25] MEDS: hydrOXYzine PAMOATE 25 MG CAPSULE (FP) PO SCH ×2 (19:47→21:14)
[2020-12-25] MEDS: INSULIN SLIDING SCALE (NOVOLOG) 1 VIAL SQ SCH (21:08)
[2020-12-25] MEDS ORDERED: INSULIN (NOVOLOG) ASPART 100 UNITS/ML 10ML VIAL ONE (21:12)
[2020-12-25] MEDS: GABAPENTIN 300 MG CAPSULE PO SCH (21:14)
[2020-12-25] MEDS: THIAMINE HCL 100 MG TABLET (FP) PO SCH (21:16)
[2020-12-25] MEDS: MELATONIN 5 MG TABLETS PO SCH (22:06)
[2020-12-26] MEDS: LORazepam 2 MG TABLET PO SCH ×4 (06:08→23:08)
[2020-12-26] MEDS: GABAPENTIN 300 MG CAPSULE PO SCH ×3 (06:08→21:07)
[2020-12-26] MEDS: INSULIN SLIDING SCALE (NOVOLOG) 1 VIAL SQ SCH ×4 (06:11→21:03)
[2020-12-26] MEDS: methaDONE HCL 40 MG DISPERSABLE TABLET PO SCH (09:21)
[2020-12-26] MEDS: PRENATAL VITAMINS W/ FOLIC ACID TABLET (FP) PO SCH (10:26)
[2020-12-26] MEDS ORDERED: INSULIN (NOVOLOG) ASPART 100 UNITS/ML 10ML VIAL ONE (11:36)
[2020-12-26 12:38] LABS: CALCIUM 7.9 mg/dL (8.5-10.1); HEMATOCRIT 41.5 % (32.4-45.2); HEMOGLOBIN 14.2 GM/dL (10.7-15.3); MCH 34.2 pg (25.7-33.7); MCHC 34.3 g/dl (32.0-36.0); MEAN CELL VOLUME 99.7 fl (80-96); MEAN PLT VOLUME 8.5 fl (7.5-11.1); PLATELET COUNT 94 10^3/uL (134-434); RBC 4.17 M/mm3 (3.60-5.2); RDW 16.3 % (11.6-15.6)
[2020-12-26 12:39] LABS: ALBUMIN 3.2 g/dl (3.4-5.0); BLOOD UREA NITROGEN 6.6 mg/dL (7-18)
[2020-12-26 12:42] LABS: CREATININE 0.7 mg/dL (0.55-1.3)
[2020-12-26 12:43] LABS: BILIRUBIN,TOTAL 3.2 mg/dL (0.2-1); TOT PROT 8.8 g/dl (6.4-8.2)
[2020-12-26] MEDS: THIAMINE HCL 100 MG TABLET (FP) PO SCH (21:07)
[2020-12-26] MEDS: LORazepam 1 MG TABLET PO PRN (21:08)
[2020-12-26] MEDS: MELATONIN 5 MG TABLETS PO SCH (21:08)
[2020-12-27] MEDS: IBUPROFEN 400 MG TABLET (FP) PO PRN ×2 (03:44→11:26)
[2020-12-27] MEDS: LORazepam 1 MG TABLET PO SCH ×5 (05:40→23:10)
[2020-12-27] MEDS: GABAPENTIN 300 MG CAPSULE PO SCH ×3 (05:40→21:48)
[2020-12-27] MEDS: methaDONE HCL 40 MG DISPERSABLE TABLET PO SCH (05:40)
[2020-12-27] MEDS: INSULIN SLIDING SCALE (NOVOLOG) 1 VIAL SQ SCH ×4 (06:20→21:45)
[2020-12-27 09:16] LABS: CALCIUM 8.6 mg/dL (8.5-10.1); INR 1.3 (0.83-1.09); PROTHROMBIN TIME (PATIENT) 15.6 SEC (9.7-13.0)
[2020-12-27 09:17] LABS: BLOOD UREA NITROGEN 11.3 mg/dL (7-18)
[2020-12-27 09:20] LABS: CREATININE 0.7 mg/dL (0.55-1.3)
[2020-12-27 09:22] LABS: BILIRUBIN,TOTAL 3.1 mg/dL (0.2-1); TOT PROT 8.1 g/dl (6.4-8.2)
[2020-12-27] MEDS: METHOCARBAMOL 500 MG TABLET PO PRN (11:26)
[2020-12-27] MEDS: PRENATAL VITAMINS W/ FOLIC ACID TABLET (FP) PO SCH (11:28)
[2020-12-27] MEDS ORDERED: INSULIN (NOVOLOG) ASPART 100 UNITS/ML 10ML VIAL ONE ×2 (11:31→16:53)
[2020-12-27] MEDS: LORazepam 1 MG TABLET PO PRN (20:10)
[2020-12-27] MEDS: THIAMINE HCL 100 MG TABLET (FP) PO SCH (21:48)
[2020-12-27] MEDS: MELATONIN 5 MG TABLETS PO SCH (21:49)
[2020-12-28] MEDS ORDERED: LORazepam 0.5 MG TABLET PO PRN
[2020-12-28] MEDS: GABAPENTIN 300 MG CAPSULE PO SCH ×3 (05:24→22:01)
[2020-12-28] MEDS: methaDONE HCL 40 MG DISPERSABLE TABLET PO SCH (05:24)
[2020-12-28] MEDS: LORazepam 0.5 MG TABLET PO SCH ×4 (05:24→22:01)
[2020-12-28] MEDS ORDERED: INSULIN (NOVOLOG) ASPART 100 UNITS/ML 10ML VIAL ONE ×2 (06:40→11:42)
[2020-12-28] MEDS: INSULIN SLIDING SCALE (NOVOLOG) 1 VIAL SQ SCH ×4 (07:05→22:02)
[2020-12-28] MEDS: IBUPROFEN 400 MG TABLET (FP) PO PRN (10:32)
[2020-12-28] MEDS: METHOCARBAMOL 500 MG TABLET PO PRN (10:32)
[2020-12-28] MEDS: PRENATAL VITAMINS W/ FOLIC ACID TABLET (FP) PO SCH (10:33)
[2020-12-28] MEDS: MAGNESIUM HYDROX 2400MG/30ML ORAL SUSPENSION 30 ML CUP PO PRN (13:13)
[2020-12-28] MEDS: THIAMINE HCL 100 MG TABLET (FP) PO SCH (22:01)
[2020-12-28] MEDS: MELATONIN 5 MG TABLETS PO SCH (22:02)
[2020-12-29] MEDS ORDERED: LORazepam 0.5 MG TABLET PO ONE ×2 (05:00→12:00)
[2020-12-29] MEDS: GABAPENTIN 300 MG CAPSULE PO SCH ×2 (05:45→13:17)
[2020-12-29] MEDS: methaDONE HCL 40 MG DISPERSABLE TABLET PO SCH (05:45)
[2020-12-29 06:31] VITALS: PULSE 76
[2020-12-29] MEDS: INSULIN SLIDING SCALE (NOVOLOG) 1 VIAL SQ SCH ×2 (06:59→11:41)
[2020-12-29] MEDS: MAGNESIUM HYDROX 2400MG/30ML ORAL SUSPENSION 30 ML CUP PO PRN (07:49)
[2020-12-29] MEDS ORDERED: POTASSIUM CHLORIDE ORAL LIQUID 20 MEQ/15 ML PO ONE (10:00)
[2020-12-29] MEDS: PRENATAL VITAMINS W/ FOLIC ACID TABLET (FP) PO SCH (10:55)
[2020-12-29] MEDS ORDERED: INSULIN (NOVOLOG) ASPART 100 UNITS/ML 10ML VIAL ONE (11:42)
[2020-12-29 12:08] VITALS: BP 132/70; TEMP 97.5
[2020-12-29 12:45] LABS: ALBUMIN 3.1 g/dl (3.4-5.0); BLOOD UREA NITROGEN 8.9 mg/dL (7-18); CALCIUM 8.4 mg/dL (8.5-10.1)
[2020-12-29 12:48] LABS: CREATININE 0.6 mg/dL (0.55-1.3)
[2020-12-29 12:50] LABS: BILIRUBIN,TOTAL 2.5 mg/dL (0.2-1); TOT PROT 7.8 g/dl (6.4-8.2)
== END 2020-12-29 15:38 | disposition other institution (70) | DRG 773 ==
LOC: YASAS 14:42 → Y6N 17:41
PROVIDERS: ADMIT Allergy & Immunology; ATTEND Allergy & Immunology
PROC: HZ2ZZZZ Detoxification Services for Substance Abuse Treatment (ICD-10-PCS; principal; 2020-12-25)
DX: F10.230 Alcohol dependence with withdrawal, uncomplicated (principal); F11.20 Opioid dependence, uncomplicated; D69.6 Thrombocytopenia, unspecified; E87.6 Hypokalemia; E80.6 Other disorders of bilirubin metabolism; E11.49 Type 2 diabetes mellitus with other diabetic neurological complication; E11.65 Type 2 diabetes mellitus with hyperglycemia; Z79.4 Long term (current) use of insulin; G57.93 Unspecified mononeuropathy of bilateral lower limbs; M54.5 Low back pain; G89.29 Other chronic pain; R74.01 Elevation of levels of liver transaminase levels; R94.31 Abnormal electrocardiogram [ECG] [EKG]; Z99.89 Dependence on other enabling machines and devices; Z88.2 Allergy status to sulfonamides; W18.39XA Other fall on same level, initial encounter; Y93.89 Activity, other specified; Y92.238 Other place in hospital as the place of occurrence of the external cause; Y99.8 Other external cause status
CPT/HCPCS: 36415; 80053; 82962; 83036; 85027; 85610; 86780; 87522; 93005; 93010; C9803; U0003; U0005

== ENCOUNTER 2020-12-29 15:57 | Inpatient (IN) | payer OTHER ==
[~2020-12-29 15:57] MED LIST: LOPERAMIDE HCL 2 MG CAPSULE PO PRN; MAG HYDROX/AL HYDROX/SIMETH 30 ML UNIT-DOSE CUP PO PRN; P-EPHED 60MG/TRIPROLIDI 2.5MG TABLET PO PRN; guaiFENesin 200 MG/10 ML 10 ML UNIT-DOSE CUPS PO PRN
[2020-12-29] MEDS: INSULIN SLIDING SCALE (NOVOLOG) 1 VIAL SQ SCH ×2 (17:01→22:13)
[2020-12-29] MEDS ORDERED: hydrOXYzine PAMOATE 25 MG CAPSULE (FP) PO PRN (17:07)
[2020-12-29] MEDS ORDERED: cloNIDine HCL 0.1 MG TABLET PO PRN (17:08)
[2020-12-29] MEDS: GABAPENTIN 300 MG CAPSULE PO SCH (21:18)
[2020-12-29] MEDS: THIAMINE HCL 100 MG TABLET (FP) PO SCH (21:18)
[2020-12-29] MEDS ORDERED: MELATONIN 5 MG TABLETS PO SCH (22:00)
[2020-12-30] MEDS: GABAPENTIN 300 MG CAPSULE PO SCH ×3 (06:04→21:13)
[2020-12-30] MEDS: INSULIN SLIDING SCALE (NOVOLOG) 1 VIAL SQ SCH ×4 (06:49→21:13)
[2020-12-30] MEDS: methaDONE HCL 40 MG DISPERSABLE TABLET PO SCH (06:51)
[2020-12-30] MEDS: PRENATAL VITAMINS W/ FOLIC ACID TABLET (FP) PO SCH (09:41)
[2020-12-30 11:26] LABS: BILIRUBIN,DIRECT 1.3 mg/dL (0.0-0.2)
[2020-12-30 11:28] LABS: TOT PROT 7.8 g/dl (6.4-8.2)
[2020-12-30] MEDS: NICOTINE 10 MG CARTRIDGE (INHALER) IH PRN ×2 (12:00→16:55)
[2020-12-30] MEDS ORDERED: busPIRone HCL 5 MG TABLET PO ONE (13:30)
[2020-12-30] MEDS ORDERED: PT OWN MED DRAWER 7, Y5N ONE (20:15)
[2020-12-30] MEDS: THIAMINE HCL 100 MG TABLET (FP) PO SCH (21:12)
[2020-12-30] MEDS: busPIRone HCL 5 MG TABLET PO SCH (21:13)
[2020-12-30] MEDS: MAGNESIUM HYDROX 2400MG/30ML ORAL SUSPENSION 30 ML CUP PO PRN (21:14)
[2020-12-30] MEDS ORDERED: traZODone HCL 50 MG TABLET (FP) PO SCH (22:00)
[2020-12-31] MEDS: GABAPENTIN 300 MG CAPSULE PO SCH ×3 (06:05→21:10)
[2020-12-31] MEDS: methaDONE HCL 40 MG DISPERSABLE TABLET PO SCH (06:05)
[2020-12-31] MEDS: NICOTINE 10 MG CARTRIDGE (INHALER) IH PRN ×2 (06:07→21:25)
[2020-12-31] MEDS: INSULIN SLIDING SCALE (NOVOLOG) 1 VIAL SQ SCH ×4 (07:16→21:11)
[2020-12-31] MEDS: MAGNESIUM HYDROX 2400MG/30ML ORAL SUSPENSION 30 ML CUP PO PRN (07:21)
[2020-12-31] MEDS: PRENATAL VITAMINS W/ FOLIC ACID TABLET (FP) PO SCH (09:48)
[2020-12-31] MEDS: busPIRone HCL 5 MG TABLET PO SCH ×2 (10:08→21:10)
[2020-12-31] MEDS: MAGNESIUM CITRATE 300 ML BOTTLE PO PRN (14:25)
[2020-12-31] MEDS: LIDOCAINE 5% TOPICAL PATCH TP SCH (17:27)
[2020-12-31] MEDS ORDERED: INSULIN (NOVOLOG) ASPART 100 UNITS/ML 10ML VIAL ONE (18:37)
[2020-12-31] MEDS ORDERED: PT OWN MED DRAWER 7, Y5N ONE (18:37)
[2020-12-31] MEDS: THIAMINE HCL 100 MG TABLET (FP) PO SCH (21:10)
[2020-12-31] MEDS: LIDOCAINE PATCH REMOVAL MC SCH (22:58)
[2021-01-01] MEDS: methaDONE HCL 40 MG DISPERSABLE TABLET PO SCH (06:02)
[2021-01-01] MEDS: GABAPENTIN 300 MG CAPSULE PO SCH ×3 (06:03→21:06)
[2021-01-01] MEDS: INSULIN SLIDING SCALE (NOVOLOG) 1 VIAL SQ SCH ×4 (06:04→16:42)
[2021-01-01] MEDS: PRENATAL VITAMINS W/ FOLIC ACID TABLET (FP) PO SCH (09:44)
[2021-01-01] MEDS: LIDOCAINE 5% TOPICAL PATCH TP SCH (09:44)
[2021-01-01] MEDS: NICOTINE 10 MG CARTRIDGE (INHALER) IH PRN ×2 (09:44→17:53)
[2021-01-01] MEDS: busPIRone HCL 5 MG TABLET PO SCH ×2 (09:44→21:06)
[2021-01-01] MEDS ORDERED: INSULIN (NOVOLOG) ASPART 100 UNITS/ML 10ML VIAL ONE (11:55)
[2021-01-01] MEDS: HYDROCORTISONE 1% TOPICAL OINT 30 GM TUBE TP SCH ×2 (15:56→21:07)
[2021-01-01] MEDS ORDERED: PT OWN MED DRAWER 7, Y5N ONE (18:23)
[2021-01-01] MEDS: THIAMINE HCL 100 MG TABLET (FP) PO SCH (21:06)
[2021-01-01] MEDS: SUVOREXANT 5 MG TABLET PO PRN (21:07)
[2021-01-01] MEDS: LIDOCAINE PATCH REMOVAL MC SCH (21:07)
[2021-01-02] MEDS: methaDONE HCL 40 MG DISPERSABLE TABLET PO SCH (06:04)
[2021-01-02] MEDS: INSULIN SLIDING SCALE (NOVOLOG) 1 VIAL SQ SCH ×2 (06:05→17:02)
[2021-01-02] MEDS: GABAPENTIN 300 MG CAPSULE PO SCH ×3 (06:05→21:09)
[2021-01-02] MEDS: NICOTINE 10 MG CARTRIDGE (INHALER) IH PRN ×2 (08:50→21:11)
[2021-01-02] MEDS: LIDOCAINE 5% TOPICAL PATCH TP SCH (10:18)
[2021-01-02] MEDS: HYDROCORTISONE 1% TOPICAL OINT 30 GM TUBE TP SCH ×2 (10:19→21:10)
[2021-01-02] MEDS: busPIRone HCL 5 MG TABLET PO SCH ×2 (10:19→21:11)
[2021-01-02] MEDS: PRENATAL VITAMINS W/ FOLIC ACID TABLET (FP) PO SCH (10:20)
[2021-01-02] MEDS ORDERED: PT OWN MED DRAWER 7, Y5N ONE ×2 (19:16→21:11)
[2021-01-02] MEDS: THIAMINE HCL 100 MG TABLET (FP) PO SCH (21:09)
[2021-01-02] MEDS: SUVOREXANT 5 MG TABLET PO PRN (21:09)
[2021-01-02] MEDS: LIDOCAINE PATCH REMOVAL MC SCH (21:09)
[2021-01-03] MEDS: GABAPENTIN 300 MG CAPSULE PO SCH ×3 (06:01→21:46)
[2021-01-03] MEDS: methaDONE HCL 40 MG DISPERSABLE TABLET PO SCH (06:01)
[2021-01-03] MEDS: INSULIN SLIDING SCALE (NOVOLOG) 1 VIAL SQ SCH ×2 (06:06→16:51)
[2021-01-03] MEDS: NICOTINE 10 MG CARTRIDGE (INHALER) IH PRN ×2 (08:53→17:51)
[2021-01-03] MEDS: LIDOCAINE 5% TOPICAL PATCH TP SCH (10:51)
[2021-01-03] MEDS: PRENATAL VITAMINS W/ FOLIC ACID TABLET (FP) PO SCH (10:51)
[2021-01-03] MEDS: busPIRone HCL 5 MG TABLET PO SCH ×2 (10:52→21:46)
[2021-01-03] MEDS: HYDROCORTISONE 1% TOPICAL OINT 30 GM TUBE TP SCH ×2 (10:52→21:46)
[2021-01-03] MEDS: MAGNESIUM CITRATE 300 ML BOTTLE PO PRN (14:17)
[2021-01-03] MEDS: THIAMINE HCL 100 MG TABLET (FP) PO SCH (21:45)
[2021-01-03] MEDS: LIDOCAINE PATCH REMOVAL MC SCH (21:46)
[2021-01-03] MEDS: SUVOREXANT 5 MG TABLET PO PRN (21:47)
[2021-01-04] MEDS: methaDONE HCL 40 MG DISPERSABLE TABLET PO SCH (06:15)
[2021-01-04] MEDS: GABAPENTIN 300 MG CAPSULE PO SCH ×3 (06:15→22:12)
[2021-01-04] MEDS: INSULIN SLIDING SCALE (NOVOLOG) 1 VIAL SQ SCH ×2 (06:17→16:25)
[2021-01-04] MEDS: NICOTINE 10 MG CARTRIDGE (INHALER) IH PRN ×2 (07:18→20:33)
[2021-01-04] MEDS: PRENATAL VITAMINS W/ FOLIC ACID TABLET (FP) PO SCH (09:41)
[2021-01-04] MEDS: LIDOCAINE 5% TOPICAL PATCH TP SCH (09:42)
[2021-01-04] MEDS: busPIRone HCL 5 MG TABLET PO SCH ×2 (09:42→22:12)
[2021-01-04] MEDS: HYDROCORTISONE 1% TOPICAL OINT 30 GM TUBE TP SCH ×2 (09:43→22:13)
[2021-01-04] MEDS: LIDOCAINE PATCH REMOVAL MC SCH (22:12)
[2021-01-04] MEDS: THIAMINE HCL 100 MG TABLET (FP) PO SCH (22:12)
[2021-01-05] MEDS: GABAPENTIN 300 MG CAPSULE PO SCH ×3 (06:15→21:12)
[2021-01-05] MEDS: methaDONE HCL 40 MG DISPERSABLE TABLET PO SCH (06:15)
[2021-01-05] MEDS: INSULIN SLIDING SCALE (NOVOLOG) 1 VIAL SQ SCH ×2 (06:40→17:06)
[2021-01-05] MEDS: LIDOCAINE 5% TOPICAL PATCH TP SCH (11:03)
[2021-01-05] MEDS: PRENATAL VITAMINS W/ FOLIC ACID TABLET (FP) PO SCH (11:03)
[2021-01-05] MEDS: HYDROCORTISONE 1% TOPICAL OINT 30 GM TUBE TP SCH ×2 (11:04→21:12)
[2021-01-05] MEDS: busPIRone HCL 5 MG TABLET PO SCH ×2 (11:04→21:12)
[2021-01-05] MEDS: NICOTINE 10 MG CARTRIDGE (INHALER) IH PRN ×3 (11:13→21:12)
[2021-01-05] MEDS: THIAMINE HCL 100 MG TABLET (FP) PO SCH (21:12)
[2021-01-05] MEDS: SUVOREXANT 5 MG TABLET PO PRN (21:12)
[2021-01-05] MEDS: MAGNESIUM HYDROX 2400MG/30ML ORAL SUSPENSION 30 ML CUP PO PRN (21:12)
[2021-01-05] MEDS: LIDOCAINE PATCH REMOVAL MC SCH (22:49)
[2021-01-06] MEDS: INSULIN SLIDING SCALE (NOVOLOG) 1 VIAL SQ SCH ×2 (06:02→16:55)
[2021-01-06] MEDS: GABAPENTIN 300 MG CAPSULE PO SCH ×3 (06:05→21:07)
[2021-01-06] MEDS: NICOTINE 10 MG CARTRIDGE (INHALER) IH PRN ×3 (06:06→16:07)
[2021-01-06] MEDS: methaDONE HCL 40 MG DISPERSABLE TABLET PO SCH (06:35)
[2021-01-06] MEDS: HYDROCORTISONE 1% TOPICAL OINT 30 GM TUBE TP SCH ×2 (09:55→21:08)
[2021-01-06] MEDS: PRENATAL VITAMINS W/ FOLIC ACID TABLET (FP) PO SCH (09:57)
[2021-01-06] MEDS: LIDOCAINE 5% TOPICAL PATCH TP SCH (09:57)
[2021-01-06] MEDS: busPIRone HCL 5 MG TABLET PO SCH ×2 (09:57→17:09)
[2021-01-06] MEDS ORDERED: PT OWN MED DRAWER 7, Y5N ONE (17:02)
[2021-01-06] MEDS: MAGNESIUM HYDROX 2400MG/30ML ORAL SUSPENSION 30 ML CUP PO PRN (17:21)
[2021-01-06] MEDS: THIAMINE HCL 100 MG TABLET (FP) PO SCH (21:07)
[2021-01-06] MEDS: LIDOCAINE PATCH REMOVAL MC SCH (21:08)
[2021-01-06] MEDS: SUVOREXANT 5 MG TABLET PO PRN (21:09)
[2021-01-07] MEDS: methaDONE HCL 40 MG DISPERSABLE TABLET PO SCH (06:10)
[2021-01-07] MEDS: GABAPENTIN 300 MG CAPSULE PO SCH ×3 (06:10→21:14)
[2021-01-07] MEDS: INSULIN SLIDING SCALE (NOVOLOG) 1 VIAL SQ SCH ×2 (06:12→17:00)
[2021-01-07] MEDS: PRENATAL VITAMINS W/ FOLIC ACID TABLET (FP) PO SCH (10:14)
[2021-01-07] MEDS: busPIRone HCL 5 MG TABLET PO SCH ×2 (10:15→17:27)
[2021-01-07] MEDS: LIDOCAINE 5% TOPICAL PATCH TP SCH (10:16)
[2021-01-07] MEDS: HYDROCORTISONE 1% TOPICAL OINT 30 GM TUBE TP SCH ×2 (10:16→21:13)
[2021-01-07] MEDS: NICOTINE 10 MG CARTRIDGE (INHALER) IH PRN ×3 (10:17→18:56)
[2021-01-07] MEDS: MAGNESIUM HYDROX 2400MG/30ML ORAL SUSPENSION 30 ML CUP PO PRN (10:17)
[2021-01-07] MEDS: THIAMINE HCL 100 MG TABLET (FP) PO SCH (21:13)
[2021-01-07] MEDS: LIDOCAINE PATCH REMOVAL MC SCH (21:14)
[2021-01-07] MEDS: SUVOREXANT 5 MG TABLET PO PRN (21:17)
[2021-01-07] MEDS ORDERED: INSULIN (NOVOLOG) ASPART 100 UNITS/ML 10ML VIAL ONE (21:43)
[2021-01-08] MEDS: GABAPENTIN 300 MG CAPSULE PO SCH ×3 (06:00→21:02)
[2021-01-08] MEDS: methaDONE HCL 40 MG DISPERSABLE TABLET PO SCH (06:01)
[2021-01-08] MEDS: NICOTINE 10 MG CARTRIDGE (INHALER) IH PRN ×5 (06:02→21:04)
[2021-01-08] MEDS: INSULIN SLIDING SCALE (NOVOLOG) 1 VIAL SQ SCH ×2 (06:02→16:50)
[2021-01-08] MEDS: PRENATAL VITAMINS W/ FOLIC ACID TABLET (FP) PO SCH (10:26)
[2021-01-08] MEDS: busPIRone HCL 5 MG TABLET PO SCH ×2 (10:26→18:14)
[2021-01-08] MEDS: LIDOCAINE 5% TOPICAL PATCH TP SCH (10:27)
[2021-01-08] MEDS: HYDROCORTISONE 1% TOPICAL OINT 30 GM TUBE TP SCH ×2 (10:28→21:03)
[2021-01-08] MEDS: MAGNESIUM HYDROX 2400MG/30ML ORAL SUSPENSION 30 ML CUP PO PRN (10:29)
[2021-01-08] MEDS ORDERED: PT OWN MED DRAWER 7, Y5N ONE (16:51)
[2021-01-08] MEDS: THIAMINE HCL 100 MG TABLET (FP) PO SCH (21:02)
[2021-01-08] MEDS: SUVOREXANT 5 MG TABLET PO PRN (21:02)
[2021-01-08] MEDS: LIDOCAINE PATCH REMOVAL MC SCH (21:03)
[2021-01-09] MEDS: methaDONE HCL 40 MG DISPERSABLE TABLET PO SCH (06:05)
[2021-01-09] MEDS: GABAPENTIN 300 MG CAPSULE PO SCH ×3 (06:05→21:20)
[2021-01-09] MEDS: NICOTINE 10 MG CARTRIDGE (INHALER) IH PRN ×4 (06:06→17:24)
[2021-01-09] MEDS: INSULIN SLIDING SCALE (NOVOLOG) 1 VIAL SQ SCH ×2 (06:57→17:22)
[2021-01-09] MEDS ORDERED: PT OWN MED DRAWER 7, Y5N ONE (08:45)
[2021-01-09] MEDS: LIDOCAINE 5% TOPICAL PATCH TP SCH (10:37)
[2021-01-09] MEDS: HYDROCORTISONE 1% TOPICAL OINT 30 GM TUBE TP SCH ×2 (10:37→21:20)
[2021-01-09] MEDS: PRENATAL VITAMINS W/ FOLIC ACID TABLET (FP) PO SCH (10:38)
[2021-01-09] MEDS: busPIRone HCL 5 MG TABLET PO SCH ×2 (10:38→17:23)
[2021-01-09] MEDS: MAGNESIUM HYDROX 2400MG/30ML ORAL SUSPENSION 30 ML CUP PO PRN (10:38)
[2021-01-09] MEDS: THIAMINE HCL 100 MG TABLET (FP) PO SCH (21:20)
[2021-01-09] MEDS: LIDOCAINE PATCH REMOVAL MC SCH (21:20)
[2021-01-09] MEDS: SUVOREXANT 5 MG TABLET PO PRN (21:22)
[2021-01-10] MEDS: GABAPENTIN 300 MG CAPSULE PO SCH ×3 (05:49→21:47)
[2021-01-10] MEDS: methaDONE HCL 40 MG DISPERSABLE TABLET PO SCH (05:49)
[2021-01-10] MEDS: NICOTINE 10 MG CARTRIDGE (INHALER) IH PRN ×4 (05:51→19:55)
[2021-01-10] MEDS: INSULIN SLIDING SCALE (NOVOLOG) 1 VIAL SQ SCH ×2 (06:48→16:00)
[2021-01-10] MEDS: PRENATAL VITAMINS W/ FOLIC ACID TABLET (FP) PO SCH (10:27)
[2021-01-10] MEDS: LIDOCAINE 5% TOPICAL PATCH TP SCH (10:27)
[2021-01-10] MEDS: HYDROCORTISONE 1% TOPICAL OINT 30 GM TUBE TP SCH ×2 (10:28→21:47)
[2021-01-10] MEDS: busPIRone HCL 5 MG TABLET PO SCH ×2 (10:28→17:15)
[2021-01-10] MEDS: MAGNESIUM HYDROX 2400MG/30ML ORAL SUSPENSION 30 ML CUP PO PRN (11:16)
[2021-01-10] MEDS ORDERED: PT OWN MED DRAWER 7, Y5N ONE (17:13)
[2021-01-10] MEDS: THIAMINE HCL 100 MG TABLET (FP) PO SCH (21:47)
[2021-01-10] MEDS: LIDOCAINE PATCH REMOVAL MC SCH (21:48)
[2021-01-10] MEDS: SUVOREXANT 5 MG TABLET PO PRN (21:49)
[2021-01-11] MEDS: GABAPENTIN 300 MG CAPSULE PO SCH ×3 (06:00→21:31)
[2021-01-11] MEDS: NICOTINE 10 MG CARTRIDGE (INHALER) IH PRN ×4 (06:00→21:35)
[2021-01-11] MEDS: methaDONE HCL 40 MG DISPERSABLE TABLET PO SCH (06:01)
[2021-01-11] MEDS: INSULIN SLIDING SCALE (NOVOLOG) 1 VIAL SQ SCH ×2 (06:02→16:56)
[2021-01-11] MEDS: LIDOCAINE 5% TOPICAL PATCH TP SCH (10:09)
[2021-01-11] MEDS: busPIRone HCL 5 MG TABLET PO SCH ×2 (10:09→17:19)
[2021-01-11] MEDS: PRENATAL VITAMINS W/ FOLIC ACID TABLET (FP) PO SCH (10:09)
[2021-01-11] MEDS: HYDROCORTISONE 1% TOPICAL OINT 30 GM TUBE TP SCH ×2 (10:10→21:32)
[2021-01-11] MEDS ORDERED: PT OWN MED DRAWER 7, Y5N ONE ×2 (17:18→19:39)
[2021-01-11] MEDS: THIAMINE HCL 100 MG TABLET (FP) PO SCH (21:31)
[2021-01-11] MEDS: LIDOCAINE PATCH REMOVAL MC SCH (21:31)
[2021-01-11] MEDS ORDERED: SUVOREXANT 5 MG TABLET PO PRN (22:00)
[2021-01-12] MEDS: GABAPENTIN 300 MG CAPSULE PO SCH (06:13)
[2021-01-12] MEDS: methaDONE HCL 40 MG DISPERSABLE TABLET PO SCH (06:13)
[2021-01-12] MEDS: NICOTINE 10 MG CARTRIDGE (INHALER) IH PRN (06:19)
[2021-01-12 07:27] VITALS: BP 130/70; PULSE 63; TEMP 97.5
[2021-01-12] MEDS: INSULIN SLIDING SCALE (NOVOLOG) 1 VIAL SQ SCH (07:31)
[2021-01-12] MEDS ORDERED: PT OWN MED DRAWER 7, Y5N ONE (09:05)
[2021-01-12] MEDS: PRENATAL VITAMINS W/ FOLIC ACID TABLET (FP) PO SCH (09:05)
[2021-01-12] MEDS: busPIRone HCL 5 MG TABLET PO SCH (09:05)
[2021-01-12] MEDS: HYDROCORTISONE 1% TOPICAL OINT 30 GM TUBE TP SCH (09:06)
[2021-01-12] MEDS: LIDOCAINE 5% TOPICAL PATCH TP SCH (09:06)
== END 2021-01-12 10:07 | disposition home or self-care (01) | DRG 772 ==
LOC: YASAS 15:57 → Y5N 16:00
PROVIDERS: ADMIT Allergy & Immunology; ATTEND Allergy & Immunology
PROC: HZ42ZZZ Group Counseling for Substance Abuse Treatment, Cognitive-Behavioral (ICD-10-PCS; principal; 2020-12-29)
DX: F10.20 Alcohol dependence, uncomplicated (principal); F11.20 Opioid dependence, uncomplicated; F19.282 Other psychoactive substance dependence with psychoactive substance-induced sleep disorder; F19.280 Other psychoactive substance dependence with psychoactive substance-induced anxiety disorder; E11.9 Type 2 diabetes mellitus without complications; L98.8 Other specified disorders of the skin and subcutaneous tissue; M54.5 Low back pain; G89.29 Other chronic pain; Z96.649 Presence of unspecified artificial hip joint; Z79.4 Long term (current) use of insulin; Z99.89 Dependence on other enabling machines and devices; Z88.2 Allergy status to sulfonamides
CPT/HCPCS: 36415; 80076; 82962; 84132

== ENCOUNTER 2021-02-13 18:31 | Inpatient (IN) | payer OTHER ==
[2021-02-13 19:37] VITALS: BMI 29.2
[2021-02-13] MEDS ORDERED: ACETAMINOPHEN 325 MG TABLET (FP) PO PRN ×2 (20:55)
[2021-02-13] MEDS ORDERED: BISMUTH SUBSALICYLATE 524 MG/30 ML PO PRN (20:55)
[2021-02-13] MEDS ORDERED: ONDANSETRON *ODT* 4 MG TABLET SL PRN (20:55)
[2021-02-13] MEDS ORDERED: MENTHOL/PHENOL 1 EACH UD MM PRN (20:55)
[2021-02-13] MEDS ORDERED: MAGNESIUM HYDROX 2400MG/30ML ORAL SUSPENSION 30 ML CUP PO PRN (20:55)
[2021-02-13] MEDS ORDERED: METHOCARBAMOL 500 MG TABLET PO PRN (20:55)
[2021-02-13] MEDS ORDERED: MAGNESIUM CITRATE 300 ML BOTTLE PO PRN (20:55)
[2021-02-13] MEDS ORDERED: MAG HYDROX/AL HYDROX/SIMETH 30 ML UNIT-DOSE CUP PO PRN (20:55)
[2021-02-13] MEDS ORDERED: hydrOXYzine PAMOATE 25 MG CAPSULE (FP) PO PRN (20:55)
[2021-02-13] MEDS ORDERED: NICOTINE POLACRILEX 2 MG GUM BUC PRN (20:55)
[2021-02-13] MEDS ORDERED: TRIMETHOBENZAMIDE HCL 200MG/2ML INJ IM ONE ×2 (20:58→21:06)
[2021-02-13] MEDS ORDERED: LORazepam 1 MG TABLET PO PRN (20:59)
[2021-02-13] MEDS ORDERED: LORazepam 2 MG/ML SDV VIAL ONE (21:06)
[2021-02-13] MEDS ORDERED: LORazepam 2 MG/ML SDV VIAL IM ONE (21:15)
[2021-02-13] MEDS ORDERED: LORazepam 2 MG TABLET ONE (23:27)
[2021-02-13] MEDS: LORazepam 2 MG TABLET PO SCH (23:32)
[2021-02-13] MEDS: MELATONIN 5 MG TABLETS PO SCH (23:33)
[2021-02-13] MEDS: THIAMINE HCL 100 MG TABLET (FP) PO SCH (23:33)
[2021-02-14] MEDS ORDERED: LORazepam 2 MG TABLET ONE ×2 (06:11→10:05)
[2021-02-14] MEDS: LORazepam 2 MG TABLET PO SCH ×4 (06:16→22:10)
[2021-02-14] MEDS: PRENATAL VITAMINS W/ FOLIC ACID TABLET (FP) PO SCH (10:11)
[2021-02-14] MEDS: methaDONE HCL 40 MG DISPERSABLE TABLET PO SCH (11:05)
[2021-02-14] MEDS: INSULIN SLIDING SCALE (NOVOLOG) 1 VIAL SQ SCH ×2 (11:15→17:37)
[2021-02-14] MEDS: PATIENT'S OWN MEDICATION (NON-FORMULARY) (Gabapentin [Neurontin] 600 MG) PO SCH ×2 (13:30→22:09)
[2021-02-14] MEDS ORDERED: PATIENT'S OWN MEDICATION (NON-FORMULARY) (Gabapentin [Neurontin] 600 MG Tablet) PO SCH (14:00)
[2021-02-14] MEDS: busPIRone HCL 5 MG TABLET PO SCH (17:35)
[2021-02-14] MEDS: NICOTINE 10 MG CARTRIDGE (INHALER) IH PRN ×2 (18:49→22:09)
[2021-02-14] MEDS: THIAMINE HCL 100 MG TABLET (FP) PO SCH (22:09)
[2021-02-14] MEDS: MELATONIN 5 MG TABLETS PO SCH (22:10)
[2021-02-15] MEDS: LORazepam 1 MG TABLET PO SCH ×4 (05:24→21:59)
[2021-02-15] MEDS: PATIENT'S OWN MEDICATION (NON-FORMULARY) (Gabapentin [Neurontin] 600 MG) PO SCH ×3 (05:26→21:56)
[2021-02-15] MEDS: INSULIN SLIDING SCALE (NOVOLOG) 1 VIAL SQ SCH ×2 (07:07→17:17)
[2021-02-15] MEDS: methaDONE HCL 40 MG DISPERSABLE TABLET PO SCH (09:00)
[2021-02-15] MEDS: PRENATAL VITAMINS W/ FOLIC ACID TABLET (FP) PO SCH (10:06)
[2021-02-15] MEDS: busPIRone HCL 5 MG TABLET PO SCH ×2 (10:06→17:41)
[2021-02-15] MEDS: NICOTINE 10 MG CARTRIDGE (INHALER) IH PRN (10:08)
[2021-02-15 10:33] LABS: HEMATOCRIT 40.1 % (32.4-45.2); HEMOGLOBIN 13.8 GM/dL (10.7-15.3); MCHC 34.5 g/dl (32.0-36.0); MEAN CELL VOLUME 98.7 fl (80-96); MEAN PLT VOLUME 8.4 fl (7.5-11.1); PLATELET COUNT 71 10^3/uL (134-434); RBC 4.06 M/mm3 (3.60-5.2); RDW 14.4 % (11.6-15.6); WHITE BLOOD COUNT 4.3 K/mm3 (4.0-10.0)
[2021-02-15 10:38] LABS: ALBUMIN 3.2 g/dl (3.4-5.0)
[2021-02-15 10:39] LABS: CALCIUM 8.7 mg/dL (8.5-10.1); CREATININE 0.5 mg/dL (0.55-1.3)
[2021-02-15 10:40] LABS: BLOOD UREA NITROGEN 8.4 mg/dL (7-18)
[2021-02-15 10:43] LABS: TOT PROT 8.3 g/dl (6.4-8.2)
[2021-02-15] MEDS ORDERED: methaDONE HCL 40 MG DISPERSABLE TABLET PO SCH (13:48)
[2021-02-15] MEDS: MELATONIN 5 MG TABLETS PO SCH (21:56)
[2021-02-15] MEDS: THIAMINE HCL 100 MG TABLET (FP) PO SCH (21:56)
[2021-02-16] MEDS ORDERED: LORazepam 0.5 MG TABLET PO PRN
[2021-02-16] MEDS: methaDONE HCL 40 MG DISPERSABLE TABLET PO SCH (05:18)
[2021-02-16] MEDS: LORazepam 0.5 MG TABLET PO SCH ×4 (05:18→22:06)
[2021-02-16] MEDS: PATIENT'S OWN MEDICATION (NON-FORMULARY) (Gabapentin [Neurontin] 600 MG) PO SCH ×3 (05:19→22:05)
[2021-02-16] MEDS: NICOTINE 10 MG CARTRIDGE (INHALER) IH PRN ×3 (05:22→17:39)
[2021-02-16] MEDS: INSULIN SLIDING SCALE (NOVOLOG) 1 VIAL SQ SCH ×2 (06:12→17:12)
[2021-02-16] MEDS: PRENATAL VITAMINS W/ FOLIC ACID TABLET (FP) PO SCH (10:20)
[2021-02-16] MEDS: busPIRone HCL 5 MG TABLET PO SCH ×2 (10:20→17:11)
[2021-02-16] MEDS: LIDOCAINE 5% TOPICAL PATCH TP SCH (13:15)
[2021-02-16] MEDS: FLUOCINONIDE 0.05% CREAM (15 GM TUBE) TP SCH ×2 (13:45→22:07)
[2021-02-16] MEDS: IBUPROFEN 400 MG TABLET (FP) PO PRN (17:14)
[2021-02-16] MEDS ORDERED: LIDOCAINE PATCH REMOVAL MC SCH (22:00)
[2021-02-16] MEDS: THIAMINE HCL 100 MG TABLET (FP) PO SCH (22:06)
[2021-02-17] MEDS ORDERED: LORazepam 0.5 MG TABLET PO ONE (05:00)
[2021-02-17] MEDS: methaDONE HCL 40 MG DISPERSABLE TABLET PO SCH (05:15)
[2021-02-17] MEDS: PATIENT'S OWN MEDICATION (NON-FORMULARY) (Gabapentin [Neurontin] 600 MG) PO SCH (05:15)
[2021-02-17] MEDS: FLUOCINONIDE 0.05% CREAM (15 GM TUBE) TP SCH (05:17)
[2021-02-17] MEDS: NICOTINE 10 MG CARTRIDGE (INHALER) IH PRN (05:36)
[2021-02-17] MEDS: INSULIN SLIDING SCALE (NOVOLOG) 1 VIAL SQ SCH (07:52)
[2021-02-17 09:13] VITALS: BP 108/69; PULSE 85
[2021-02-17 09:50] VITALS: TEMP 96.8
[2021-02-17] MEDS: LIDOCAINE 5% TOPICAL PATCH TP SCH (10:15)
[2021-02-17] MEDS: PRENATAL VITAMINS W/ FOLIC ACID TABLET (FP) PO SCH (10:15)
[2021-02-17] MEDS: busPIRone HCL 5 MG TABLET PO SCH (10:15)
[2021-02-17] MEDS: IBUPROFEN 400 MG TABLET (FP) PO PRN (10:16)
[2021-02-17] MEDS ORDERED: MELATONIN 5 MG TABLETS PO SCH (22:00)
== END 2021-02-17 12:41 | disposition other institution (70) | DRG 773 ==
LOC: YASAS 18:31 → Y3N 02-14 09:56
PROVIDERS: ADMIT Allergy & Immunology; ATTEND Allergy & Immunology
PROC: HZ2ZZZZ Detoxification Services for Substance Abuse Treatment (ICD-10-PCS; principal; 2021-02-14)
DX: F10.230 Alcohol dependence with withdrawal, uncomplicated (principal); F11.20 Opioid dependence, uncomplicated; F13.20 Sedative, hypnotic or anxiolytic dependence, uncomplicated; F17.290 Nicotine dependence, other tobacco product, uncomplicated; F19.280 Other psychoactive substance dependence with psychoactive substance-induced anxiety disorder; F19.282 Other psychoactive substance dependence with psychoactive substance-induced sleep disorder; F19.24 Other psychoactive substance dependence with psychoactive substance-induced mood disorder; F41.9 Anxiety disorder, unspecified; E11.9 Type 2 diabetes mellitus without complications; Z79.4 Long term (current) use of insulin; G57.93 Unspecified mononeuropathy of bilateral lower limbs; G47.00 Insomnia, unspecified; L40.0 Psoriasis vulgaris; M54.50 Low back pain, unspecified; G89.29 Other chronic pain; E80.6 Other disorders of bilirubin metabolism; R26.89 Other abnormalities of gait and mobility; Z99.89 Dependence on other enabling machines and devices; Z88.2 Allergy status to sulfonamides
CPT/HCPCS: 36415; 80053; 82962; 85027; 86780; C9803; U0003; U0005

== ENCOUNTER 2021-02-17 12:52 | Inpatient (IN) | payer OTHER ==
[2021-02-17] MEDS ORDERED: hydrOXYzine PAMOATE 25 MG CAPSULE (FP) PO PRN (13:54)
[2021-02-17] MEDS ORDERED: MAGNESIUM CITRATE 300 ML BOTTLE PO PRN (13:54)
[2021-02-17] MEDS ORDERED: MAG HYDROX/AL HYDROX/SIMETH 30 ML UNIT-DOSE CUP PO PRN (13:54)
[2021-02-17] MEDS ORDERED: P-EPHED 60MG/TRIPROLIDI 2.5MG TABLET PO PRN (13:54)
[2021-02-17] MEDS ORDERED: LOPERAMIDE HCL 2 MG CAPSULE PO PRN (13:54)
[2021-02-17] MEDS ORDERED: MENTHOL/PHENOL 1 EACH UD MM PRN (13:54)
[2021-02-17] MEDS: GABAPENTIN 300 MG CAPSULE PO SCH ×2 (14:41→21:13)
[2021-02-17] MEDS ORDERED: TUBERCULIN PPD 5 TU/0.1ML VIAL ID ONE (16:35)
[2021-02-17] MEDS ORDERED: PT OWN MED DRAWER 7, Y5N ONE ×2 (16:36→21:50)
[2021-02-17] MEDS: NICOTINE 10 MG CARTRIDGE (INHALER) IH PRN ×2 (16:46→21:17)
[2021-02-17] MEDS: busPIRone HCL 5 MG TABLET PO SCH (18:26)
[2021-02-17] MEDS: IBUPROFEN 400 MG TABLET (FP) PO PRN (19:04)
[2021-02-17] MEDS: THIAMINE HCL 100 MG TABLET (FP) PO SCH (21:12)
[2021-02-17] MEDS ORDERED: MELATONIN 5 MG TABLETS PO SCH (22:00)
[2021-02-18] MEDS: methaDONE HCL 40 MG DISPERSABLE TABLET PO SCH (06:02)
[2021-02-18] MEDS: GABAPENTIN 300 MG CAPSULE PO SCH ×3 (06:02→21:42)
[2021-02-18] MEDS: NICOTINE 10 MG CARTRIDGE (INHALER) IH PRN ×3 (06:03→21:43)
[2021-02-18] MEDS: PRENATAL VITAMINS W/ FOLIC ACID TABLET (FP) PO SCH (10:21)
[2021-02-18] MEDS: busPIRone HCL 5 MG TABLET PO SCH (10:22)
[2021-02-18] MEDS: NICOTINE 7 MG/24 HOURS TOPICAL PATCH TD SCH (10:23)
[2021-02-18] MEDS: IBUPROFEN 400 MG TABLET (FP) PO PRN (10:26)
[2021-02-18] MEDS ORDERED: busPIRone HCL 10 MG TABLET (FP) PO ONE (11:25)
[2021-02-18] MEDS: MAGNESIUM HYDROX 2400MG/30ML ORAL SUSPENSION 30 ML CUP PO PRN ×2 (13:25→21:39)
[2021-02-18] MEDS: FLUOCINONIDE 0.05% TOP OINT (60 GM TUBE) TP SCH ×2 (17:46→22:51)
[2021-02-18] MEDS: THIAMINE HCL 100 MG TABLET (FP) PO SCH (21:42)
[2021-02-18] MEDS ORDERED: SUVOREXANT 10 MG TABLET PO PRN (22:00)
[2021-02-18] MEDS: INSULIN SLIDING SCALE (NOVOLOG) 1 VIAL SQ SCH (22:51)
[2021-02-19] MEDS: GABAPENTIN 300 MG CAPSULE PO SCH ×3 (06:09→21:30)
[2021-02-19] MEDS: methaDONE HCL 40 MG DISPERSABLE TABLET PO SCH (06:09)
[2021-02-19] MEDS: INSULIN SLIDING SCALE (NOVOLOG) 1 VIAL SQ SCH ×3 (06:10→17:02)
[2021-02-19] MEDS: PRENATAL VITAMINS W/ FOLIC ACID TABLET (FP) PO SCH (10:14)
[2021-02-19] MEDS: FLUOCINONIDE 0.05% TOP OINT (60 GM TUBE) TP SCH ×2 (10:14→21:33)
[2021-02-19] MEDS: NICOTINE 7 MG/24 HOURS TOPICAL PATCH TD SCH (10:14)
[2021-02-19] MEDS: NICOTINE 10 MG CARTRIDGE (INHALER) IH PRN ×3 (10:15→21:32)
[2021-02-19] MEDS: MAGNESIUM HYDROX 2400MG/30ML ORAL SUSPENSION 30 ML CUP PO PRN (10:16)
[2021-02-19 10:20] LABS: HEMATOCRIT 40.1 % (32.4-45.2); HEMOGLOBIN 13.8 GM/dL (10.7-15.3); MCH 34.1 pg (25.7-33.7); MCHC 34.3 g/dl (32.0-36.0); MEAN CELL VOLUME 99.3 fl (80-96); MEAN PLT VOLUME 8.6 fl (7.5-11.1); PLATELET COUNT 92 10^3/uL (134-434); RBC 4.03 M/mm3 (3.60-5.2); RDW 14.5 % (11.6-15.6); WHITE BLOOD COUNT 5.2 K/mm3 (4.0-10.0)
[2021-02-19 11:06] LABS: ALBUMIN 3.2 g/dl (3.4-5.0); BLOOD UREA NITROGEN 10.9 mg/dL (7-18); CALCIUM 8.8 mg/dL (8.5-10.1)
[2021-02-19 11:09] LABS: CREATININE 0.6 mg/dL (0.55-1.3)
[2021-02-19 11:10] LABS: BILIRUBIN,TOTAL 1.7 mg/dL (0.2-1)
[2021-02-19 11:11] LABS: TOT PROT 8.4 g/dl (6.4-8.2)
[2021-02-19] MEDS ORDERED: INSULIN SLIDING SCALE (NOVOLOG) 1 VIAL SQ SCH (13:00)
[2021-02-19 13:01] LABS: EPI CELLS >36 /uL (0-25.1); HYALINE CASTS 1 /uL (0-3.1); PH,URINE 5.5 (5.0-8.0); URINE APPEARANCE CLEAR; URINE BACTERIA 639 /uL (0-1359); URINE BILIRUBIN 1+ (NEGATIVE); URINE COLOR DK YELLOW; URINE GLUCOSE (UA) NEGATIVE (NEGATIVE); URINE KETONE NEGATIVE (NEGATIVE); URINE LEUK ESTERASE 1+ (NEGATIVE); URINE NITRITE NEGATIVE (NEGATIVE); URINE PROTEIN NEGATIVE (NEGATIVE); URINE RBC 3 /uL (0-23.9); URINE WBC 46 /uL (0-25.8)
[2021-02-19] MEDS: THIAMINE HCL 100 MG TABLET (FP) PO SCH (21:30)
[2021-02-20] MEDS: methaDONE HCL 40 MG DISPERSABLE TABLET PO SCH (06:14)
[2021-02-20] MEDS: GABAPENTIN 300 MG CAPSULE PO SCH ×3 (06:14→21:41)
[2021-02-20] MEDS: INSULIN SLIDING SCALE (NOVOLOG) 1 VIAL SQ SCH ×2 (06:16→16:57)
[2021-02-20] MEDS: PRENATAL VITAMINS W/ FOLIC ACID TABLET (FP) PO SCH (09:11)
[2021-02-20] MEDS: NICOTINE 10 MG CARTRIDGE (INHALER) IH PRN ×2 (09:12→21:40)
[2021-02-20] MEDS: NICOTINE 7 MG/24 HOURS TOPICAL PATCH TD SCH (09:12)
[2021-02-20] MEDS: FLUOCINONIDE 0.05% TOP OINT (60 GM TUBE) TP SCH ×2 (09:12→21:58)
[2021-02-20] MEDS: SUVOREXANT 15 MG TABLET PO PRN (21:41)
[2021-02-20] MEDS: THIAMINE HCL 100 MG TABLET (FP) PO SCH (21:41)
[2021-02-21] MEDS: GABAPENTIN 300 MG CAPSULE PO SCH ×3 (06:09→21:44)
[2021-02-21] MEDS: methaDONE HCL 40 MG DISPERSABLE TABLET PO SCH (06:09)
[2021-02-21] MEDS: NICOTINE 10 MG CARTRIDGE (INHALER) IH PRN ×4 (06:11→21:48)
[2021-02-21] MEDS: INSULIN SLIDING SCALE (NOVOLOG) 1 VIAL SQ SCH ×2 (06:11→16:51)
[2021-02-21] MEDS: PRENATAL VITAMINS W/ FOLIC ACID TABLET (FP) PO SCH (09:57)
[2021-02-21] MEDS: FLUOCINONIDE 0.05% TOP OINT (60 GM TUBE) TP SCH ×2 (09:58→21:44)
[2021-02-21] MEDS: NICOTINE 7 MG/24 HOURS TOPICAL PATCH TD SCH (09:58)
[2021-02-21] MEDS: THIAMINE HCL 100 MG TABLET (FP) PO SCH (21:44)
[2021-02-21] MEDS: SUVOREXANT 15 MG TABLET PO PRN (21:45)
[2021-02-21] MEDS: MAGNESIUM HYDROX 2400MG/30ML ORAL SUSPENSION 30 ML CUP PO PRN (21:47)
[2021-02-22] MEDS: GABAPENTIN 300 MG CAPSULE PO SCH ×3 (06:09→21:47)
[2021-02-22] MEDS: methaDONE HCL 40 MG DISPERSABLE TABLET PO SCH (06:10)
[2021-02-22] MEDS: INSULIN SLIDING SCALE (NOVOLOG) 1 VIAL SQ SCH ×2 (06:53→17:12)
[2021-02-22] MEDS: NICOTINE 7 MG/24 HOURS TOPICAL PATCH TD SCH (10:12)
[2021-02-22] MEDS: PRENATAL VITAMINS W/ FOLIC ACID TABLET (FP) PO SCH (10:12)
[2021-02-22] MEDS: FLUOCINONIDE 0.05% TOP OINT (60 GM TUBE) TP SCH ×2 (10:12→22:06)
[2021-02-22] MEDS: NICOTINE 10 MG CARTRIDGE (INHALER) IH PRN ×2 (17:13→21:48)
[2021-02-22] MEDS: THIAMINE HCL 100 MG TABLET (FP) PO SCH (21:48)
[2021-02-22] MEDS: SUVOREXANT 15 MG TABLET PO PRN (21:50)
[2021-02-22] MEDS: MAGNESIUM HYDROX 2400MG/30ML ORAL SUSPENSION 30 ML CUP PO PRN (23:06)
[2021-02-23] MEDS: NICOTINE 10 MG CARTRIDGE (INHALER) IH PRN ×3 (06:05→21:29)
[2021-02-23] MEDS: GABAPENTIN 300 MG CAPSULE PO SCH ×3 (06:05→21:27)
[2021-02-23] MEDS: methaDONE HCL 40 MG DISPERSABLE TABLET PO SCH (06:05)
[2021-02-23] MEDS: INSULIN SLIDING SCALE (NOVOLOG) 1 VIAL SQ SCH ×2 (06:06→16:49)
[2021-02-23] MEDS: PRENATAL VITAMINS W/ FOLIC ACID TABLET (FP) PO SCH (10:31)
[2021-02-23] MEDS: FLUOCINONIDE 0.05% TOP OINT (60 GM TUBE) TP SCH ×2 (10:31→21:26)
[2021-02-23] MEDS: NICOTINE 7 MG/24 HOURS TOPICAL PATCH TD SCH (10:31)
[2021-02-23] MEDS: ACAMPROSATE CALCIUM 333 MG TABLET.DR PO SCH ×2 (13:52→21:29)
[2021-02-23] MEDS: THIAMINE HCL 100 MG TABLET (FP) PO SCH (21:27)
[2021-02-23] MEDS: hydrOXYzine PAMOATE 50 MG CAPSULE (FP) PO SCH (21:27)
[2021-02-23] MEDS: SUVOREXANT 15 MG TABLET PO PRN (21:27)
[2021-02-23] MEDS: MAGNESIUM HYDROX 2400MG/30ML ORAL SUSPENSION 30 ML CUP PO PRN (21:28)
[2021-02-24] MEDS: methaDONE HCL 40 MG DISPERSABLE TABLET PO SCH (06:05)
[2021-02-24] MEDS: GABAPENTIN 300 MG CAPSULE PO SCH ×3 (06:05→21:33)
[2021-02-24] MEDS: INSULIN SLIDING SCALE (NOVOLOG) 1 VIAL SQ SCH ×2 (06:06→16:53)
[2021-02-24] MEDS: ACAMPROSATE CALCIUM 333 MG TABLET.DR PO SCH ×3 (06:29→21:34)
[2021-02-24] MEDS: PRENATAL VITAMINS W/ FOLIC ACID TABLET (FP) PO SCH (10:26)
[2021-02-24] MEDS: FLUOCINONIDE 0.05% TOP OINT (60 GM TUBE) TP SCH ×2 (10:27→21:36)
[2021-02-24] MEDS: NICOTINE 7 MG/24 HOURS TOPICAL PATCH TD SCH (10:27)
[2021-02-24] MEDS: NICOTINE 10 MG CARTRIDGE (INHALER) IH PRN ×3 (10:28→21:37)
[2021-02-24] MEDS: ACETAMINOPHEN 325 MG TABLET (FP) PO PRN (16:53)
[2021-02-24] MEDS: hydrOXYzine PAMOATE 50 MG CAPSULE (FP) PO SCH (21:33)
[2021-02-24] MEDS: SUVOREXANT 15 MG TABLET PO PRN (21:35)
[2021-02-24] MEDS: THIAMINE HCL 100 MG TABLET (FP) PO SCH (22:30)
[2021-02-25] MEDS: INSULIN SLIDING SCALE (NOVOLOG) 1 VIAL SQ SCH ×2 (06:05→16:59)
[2021-02-25] MEDS: methaDONE HCL 40 MG DISPERSABLE TABLET PO SCH (06:06)
[2021-02-25] MEDS: GABAPENTIN 300 MG CAPSULE PO SCH ×3 (06:07→21:06)
[2021-02-25] MEDS: ACAMPROSATE CALCIUM 333 MG TABLET.DR PO SCH ×3 (06:08→21:10)
[2021-02-25] MEDS: NICOTINE 10 MG CARTRIDGE (INHALER) IH PRN ×3 (06:08→21:11)
[2021-02-25] MEDS: PRENATAL VITAMINS W/ FOLIC ACID TABLET (FP) PO SCH (09:59)
[2021-02-25] MEDS: FLUOCINONIDE 0.05% TOP OINT (60 GM TUBE) TP SCH ×2 (09:59→22:36)
[2021-02-25] MEDS: NICOTINE 7 MG/24 HOURS TOPICAL PATCH TD SCH (09:59)
[2021-02-25] MEDS ORDERED: SODIUM PHOSPHATE/NA BIPHOS 133 ML ENEMA RC ONE (10:35)
[2021-02-25] MEDS: LIDOCAINE 5% TOPICAL PATCH TP SCH (11:51)
[2021-02-25] MEDS: ACETAMINOPHEN 325 MG TABLET (FP) PO PRN (17:12)
[2021-02-25] MEDS: LIDOCAINE PATCH REMOVAL MC SCH (21:06)
[2021-02-25] MEDS: THIAMINE HCL 100 MG TABLET (FP) PO SCH (21:06)
[2021-02-25] MEDS: hydrOXYzine PAMOATE 50 MG CAPSULE (FP) PO SCH (21:06)
[2021-02-25] MEDS: DOCUSATE SODIUM 100 MG CAPSULE (FP) PO SCH (21:10)
[2021-02-25] MEDS: SUVOREXANT 15 MG TABLET PO PRN (22:55)
[2021-02-26] MEDS: ACAMPROSATE CALCIUM 333 MG TABLET.DR PO SCH ×3 (06:03→21:30)
[2021-02-26] MEDS: DOCUSATE SODIUM 100 MG CAPSULE (FP) PO SCH ×3 (06:03→21:29)
[2021-02-26] MEDS: GABAPENTIN 300 MG CAPSULE PO SCH ×3 (06:03→21:29)
[2021-02-26] MEDS: methaDONE HCL 40 MG DISPERSABLE TABLET PO SCH (06:04)
[2021-02-26] MEDS: ACETAMINOPHEN 325 MG TABLET (FP) PO PRN ×2 (06:05→18:00)
[2021-02-26] MEDS: NICOTINE 10 MG CARTRIDGE (INHALER) IH PRN ×3 (06:06→21:29)
[2021-02-26 06:23] LABS: EPI CELLS 25 /uL (0-25.1); HYALINE CASTS 1 /uL (0-3.1); PH,URINE 6.5 (5.0-8.0); URINE APPEARANCE CLEAR; URINE BACTERIA 347 /uL (0-1359); URINE BILIRUBIN NEGATIVE (NEGATIVE); URINE COLOR YELLOW; URINE GLUCOSE (UA) NEGATIVE (NEGATIVE); URINE KETONE NEGATIVE (NEGATIVE); URINE LEUK ESTERASE TRACE (NEGATIVE); URINE NITRITE NEGATIVE (NEGATIVE); URINE PROTEIN NEGATIVE (NEGATIVE); URINE RBC 9 /uL (0-23.9); URINE WBC 19 /uL (0-25.8)
[2021-02-26] MEDS: INSULIN SLIDING SCALE (NOVOLOG) 1 VIAL SQ SCH ×2 (06:33→16:38)
[2021-02-26] MEDS: FLUOCINONIDE 0.05% TOP OINT (60 GM TUBE) TP SCH ×2 (10:29→21:29)
[2021-02-26] MEDS: PRENATAL VITAMINS W/ FOLIC ACID TABLET (FP) PO SCH (10:29)
[2021-02-26] MEDS: LIDOCAINE 5% TOPICAL PATCH TP SCH (10:30)
[2021-02-26] MEDS: NICOTINE 7 MG/24 HOURS TOPICAL PATCH TD SCH (10:30)
[2021-02-26] MEDS: SUVOREXANT 15 MG TABLET PO PRN (21:28)
[2021-02-26] MEDS: hydrOXYzine PAMOATE 50 MG CAPSULE (FP) PO SCH (21:29)
[2021-02-26] MEDS: LIDOCAINE PATCH REMOVAL MC SCH (21:29)
[2021-02-26] MEDS: THIAMINE HCL 100 MG TABLET (FP) PO SCH (21:29)
[2021-02-27] MEDS ORDERED: PT OWN MED DRAWER 7, Y5N ONE ×3 (03:16→20:32)
[2021-02-27] MEDS: GABAPENTIN 300 MG CAPSULE PO SCH ×3 (05:59→21:51)
[2021-02-27] MEDS: methaDONE HCL 40 MG DISPERSABLE TABLET PO SCH (05:59)
[2021-02-27] MEDS: ACAMPROSATE CALCIUM 333 MG TABLET.DR PO SCH ×3 (05:59→21:51)
[2021-02-27] MEDS: ACETAMINOPHEN 325 MG TABLET (FP) PO PRN ×3 (05:59→18:08)
[2021-02-27] MEDS: DOCUSATE SODIUM 100 MG CAPSULE (FP) PO SCH ×3 (05:59→21:50)
[2021-02-27] MEDS: NICOTINE 10 MG CARTRIDGE (INHALER) IH PRN ×3 (06:01→21:54)
[2021-02-27] MEDS: INSULIN SLIDING SCALE (NOVOLOG) 1 VIAL SQ SCH ×2 (06:36→17:39)
[2021-02-27] MEDS: FLUOCINONIDE 0.05% TOP OINT (60 GM TUBE) TP SCH ×2 (10:08→21:56)
[2021-02-27] MEDS: PRENATAL VITAMINS W/ FOLIC ACID TABLET (FP) PO SCH (10:08)
[2021-02-27] MEDS: LIDOCAINE 5% TOPICAL PATCH TP SCH (10:08)
[2021-02-27] MEDS: NICOTINE 7 MG/24 HOURS TOPICAL PATCH TD SCH (10:09)
[2021-02-27] MEDS: THIAMINE HCL 100 MG TABLET (FP) PO SCH (21:50)
[2021-02-27] MEDS: SUVOREXANT 20 MG TABLET PO PRN (21:50)
[2021-02-27] MEDS: hydrOXYzine PAMOATE 50 MG CAPSULE (FP) PO SCH (21:50)
[2021-02-27] MEDS: LIDOCAINE PATCH REMOVAL MC SCH (21:55)
[2021-02-27] MEDS ORDERED: SUVOREXANT 15 MG TABLET PO PRN (22:00)
[2021-02-28] MEDS: GABAPENTIN 300 MG CAPSULE PO SCH ×3 (06:10→21:43)
[2021-02-28] MEDS: ACAMPROSATE CALCIUM 333 MG TABLET.DR PO SCH ×3 (06:10→21:43)
[2021-02-28] MEDS: methaDONE HCL 40 MG DISPERSABLE TABLET PO SCH (06:10)
[2021-02-28] MEDS: DOCUSATE SODIUM 100 MG CAPSULE (FP) PO SCH ×3 (06:10→21:43)
[2021-02-28] MEDS: NICOTINE 10 MG CARTRIDGE (INHALER) IH PRN ×2 (06:12→21:44)
[2021-02-28] MEDS: INSULIN SLIDING SCALE (NOVOLOG) 1 VIAL SQ SCH ×2 (06:12→16:37)
[2021-02-28] MEDS: NICOTINE 7 MG/24 HOURS TOPICAL PATCH TD SCH (09:02)
[2021-02-28] MEDS: PRENATAL VITAMINS W/ FOLIC ACID TABLET (FP) PO SCH (09:02)
[2021-02-28] MEDS: guaiFENesin 200 MG/10 ML 10 ML UNIT-DOSE CUPS PO PRN ×3 (09:02→22:20)
[2021-02-28] MEDS: LIDOCAINE 5% TOPICAL PATCH TP SCH (09:02)
[2021-02-28] MEDS: FLUOCINONIDE 0.05% TOP OINT (60 GM TUBE) TP SCH ×2 (09:03→22:22)
[2021-02-28] MEDS: ACETAMINOPHEN 325 MG TABLET (FP) PO PRN ×2 (12:45→18:15)
[2021-02-28] MEDS: SUVOREXANT 20 MG TABLET PO PRN (21:42)
[2021-02-28] MEDS: hydrOXYzine PAMOATE 50 MG CAPSULE (FP) PO SCH (21:42)
[2021-02-28] MEDS: THIAMINE HCL 100 MG TABLET (FP) PO SCH (21:43)
[2021-02-28] MEDS: IBUPROFEN 400 MG TABLET (FP) PO PRN (21:44)
[2021-02-28] MEDS: LIDOCAINE PATCH REMOVAL MC SCH (22:23)
[2021-03-01] MEDS: ACETAMINOPHEN 325 MG TABLET (FP) PO PRN ×3 (06:11→16:48)
[2021-03-01] MEDS: guaiFENesin 200 MG/10 ML 10 ML UNIT-DOSE CUPS PO PRN ×3 (06:11→21:38)
[2021-03-01] MEDS: ACAMPROSATE CALCIUM 333 MG TABLET.DR PO SCH ×3 (06:12→21:40)
[2021-03-01] MEDS: methaDONE HCL 40 MG DISPERSABLE TABLET PO SCH (06:12)
[2021-03-01] MEDS: DOCUSATE SODIUM 100 MG CAPSULE (FP) PO SCH ×3 (06:13→21:39)
[2021-03-01] MEDS: GABAPENTIN 300 MG CAPSULE PO SCH ×3 (06:13→21:39)
[2021-03-01] MEDS: INSULIN SLIDING SCALE (NOVOLOG) 1 VIAL SQ SCH ×2 (06:15→18:00)
[2021-03-01] MEDS: NICOTINE 10 MG CARTRIDGE (INHALER) IH PRN (06:15)
[2021-03-01] MEDS: PRENATAL VITAMINS W/ FOLIC ACID TABLET (FP) PO SCH (10:12)
[2021-03-01] MEDS: FLUOCINONIDE 0.05% TOP OINT (60 GM TUBE) TP SCH ×2 (10:12→21:40)
[2021-03-01] MEDS: LIDOCAINE 5% TOPICAL PATCH TP SCH (10:12)
[2021-03-01] MEDS: NICOTINE 7 MG/24 HOURS TOPICAL PATCH TD SCH (10:13)
[2021-03-01] MEDS ORDERED: PT OWN MED DRAWER 7, Y5N ONE (13:44)
[2021-03-01] MEDS: THIAMINE HCL 100 MG TABLET (FP) PO SCH (21:39)
[2021-03-01] MEDS: SUVOREXANT 20 MG TABLET PO PRN (21:39)
[2021-03-01] MEDS: hydrOXYzine PAMOATE 50 MG CAPSULE (FP) PO SCH (21:39)
[2021-03-01] MEDS: IBUPROFEN 400 MG TABLET (FP) PO PRN (21:40)
[2021-03-01] MEDS: LIDOCAINE PATCH REMOVAL MC SCH (21:40)
[2021-03-02] MEDS: GABAPENTIN 300 MG CAPSULE PO SCH ×3 (06:03→21:31)
[2021-03-02] MEDS: ACETAMINOPHEN 325 MG TABLET (FP) PO PRN ×3 (06:03→22:56)
[2021-03-02] MEDS: ACAMPROSATE CALCIUM 333 MG TABLET.DR PO SCH ×3 (06:03→21:37)
[2021-03-02] MEDS: DOCUSATE SODIUM 100 MG CAPSULE (FP) PO SCH ×3 (06:03→21:31)
[2021-03-02] MEDS: methaDONE HCL 40 MG DISPERSABLE TABLET PO SCH (06:05)
[2021-03-02] MEDS: INSULIN SLIDING SCALE (NOVOLOG) 1 VIAL SQ SCH ×2 (06:06→17:00)
[2021-03-02] MEDS: NICOTINE 10 MG CARTRIDGE (INHALER) IH PRN ×3 (06:06→21:37)
[2021-03-02] MEDS: guaiFENesin 200 MG/10 ML 10 ML UNIT-DOSE CUPS PO PRN ×3 (06:57→18:55)
[2021-03-02] MEDS: PRENATAL VITAMINS W/ FOLIC ACID TABLET (FP) PO SCH (10:13)
[2021-03-02] MEDS: LIDOCAINE 5% TOPICAL PATCH TP SCH (10:13)
[2021-03-02] MEDS: FLUOCINONIDE 0.05% TOP OINT (60 GM TUBE) TP SCH ×2 (10:14→21:37)
[2021-03-02] MEDS: NICOTINE 7 MG/24 HOURS TOPICAL PATCH TD SCH (10:14)
[2021-03-02] MEDS: hydrOXYzine PAMOATE 50 MG CAPSULE (FP) PO SCH (21:31)
[2021-03-02] MEDS: THIAMINE HCL 100 MG TABLET (FP) PO SCH (21:31)
[2021-03-02] MEDS: LIDOCAINE PATCH REMOVAL MC SCH (21:37)
[2021-03-03] MEDS: GABAPENTIN 300 MG CAPSULE PO SCH (05:52)
[2021-03-03] MEDS: methaDONE HCL 40 MG DISPERSABLE TABLET PO SCH (05:53)
[2021-03-03] MEDS: ACAMPROSATE CALCIUM 333 MG TABLET.DR PO SCH (05:53)
[2021-03-03] MEDS: DOCUSATE SODIUM 100 MG CAPSULE (FP) PO SCH (05:53)
[2021-03-03] MEDS: ACETAMINOPHEN 325 MG TABLET (FP) PO PRN (05:54)
[2021-03-03] MEDS: NICOTINE 10 MG CARTRIDGE (INHALER) IH PRN (05:56)
[2021-03-03] MEDS: INSULIN SLIDING SCALE (NOVOLOG) 1 VIAL SQ SCH (06:14)
[2021-03-03 06:19] VITALS: BP 116/68; PULSE 72; TEMP 97.4
[2021-03-03] MEDS: guaiFENesin 200 MG/10 ML 10 ML UNIT-DOSE CUPS PO PRN (07:04)
[2021-03-03] MEDS: FLUOCINONIDE 0.05% TOP OINT (60 GM TUBE) TP SCH (09:24)
[2021-03-03] MEDS: PRENATAL VITAMINS W/ FOLIC ACID TABLET (FP) PO SCH (09:24)
[2021-03-03] MEDS: NICOTINE 7 MG/24 HOURS TOPICAL PATCH TD SCH (09:24)
[2021-03-03] MEDS: LIDOCAINE 5% TOPICAL PATCH TP SCH (09:24)
== END 2021-03-03 09:50 | disposition home or self-care (01) | DRG 772 ==
LOC: YASAS 12:52 → Y5N 12:53
PROVIDERS: ADMIT Allergy & Immunology; ATTEND Allergy & Immunology
PROC: HZ42ZZZ Group Counseling for Substance Abuse Treatment, Cognitive-Behavioral (ICD-10-PCS; principal; 2021-02-17)
DX: F10.20 Alcohol dependence, uncomplicated (principal); F11.20 Opioid dependence, uncomplicated; F19.24 Other psychoactive substance dependence with psychoactive substance-induced mood disorder; F19.280 Other psychoactive substance dependence with psychoactive substance-induced anxiety disorder; F19.282 Other psychoactive substance dependence with psychoactive substance-induced sleep disorder; E11.40 Type 2 diabetes mellitus with diabetic neuropathy, unspecified; M54.50 Low back pain, unspecified; G89.29 Other chronic pain; L41.4 Large plaque parapsoriasis; R05.9 Cough, unspecified; K59.03 Drug induced constipation; R26.2 Difficulty in walking, not elsewhere classified; Z99.89 Dependence on other enabling machines and devices; Z86.69 Personal history of other diseases of the nervous system and sense organs; Z79.4 Long term (current) use of insulin; Z56.0 Unemployment, unspecified
CPT/HCPCS: 36415; 71046-TC-FY; 80053; 81003; 82962; 85027; 87086

== ENCOUNTER 2021-04-08 14:09 | Inpatient (IN) | payer OTHER ==
[2021-04-08 15:15] VITALS: BMI 27.4
[2021-04-08] MEDS ORDERED: ACETAMINOPHEN 325 MG TABLET (FP) PO PRN ×2 (17:01)
[2021-04-08] MEDS ORDERED: MAG HYDROX/AL HYDROX/SIMETH 30 ML UNIT-DOSE CUP PO PRN (17:01)
[2021-04-08] MEDS ORDERED: MENTHOL/PHENOL 1 EACH UD MM PRN (17:01)
[2021-04-08] MEDS ORDERED: BISMUTH SUBSALICYLATE 524 MG/30 ML PO PRN (17:01)
[2021-04-08] MEDS ORDERED: MAGNESIUM CITRATE 300 ML BOTTLE PO PRN (17:01)
[2021-04-08] MEDS ORDERED: MAGNESIUM HYDROX 2400MG/30ML ORAL SUSPENSION 30 ML CUP PO PRN (17:01)
[2021-04-08] MEDS ORDERED: IBUPROFEN 400 MG TABLET (FP) PO PRN (17:01)
[2021-04-08] MEDS ORDERED: ONDANSETRON *ODT* 4 MG TABLET ONE ×2 (17:48→17:49)
[2021-04-08] MEDS: ONDANSETRON *ODT* 4 MG TABLET SL PRN (17:50)
[2021-04-08] MEDS ORDERED: LORazepam 2 MG TABLET ONE ×3 (17:52→17:57)
[2021-04-08] MEDS: LORazepam 2 MG TABLET PO SCH ×3 (18:09→22:08)
[2021-04-08] MEDS ORDERED: TRIMETHOBENZAMIDE HCL 200MG/2ML INJ IM PRN (21:23)
[2021-04-08] MEDS: hydrOXYzine PAMOATE 25 MG CAPSULE (FP) PO SCH ×2 (21:58→22:07)
[2021-04-08] MEDS: PRENATAL VITAMINS W/ FOLIC ACID TABLET (FP) PO SCH (21:58)
[2021-04-08] MEDS: THIAMINE HCL 100 MG TABLET (FP) PO SCH (22:07)
[2021-04-08] MEDS: MELATONIN 5 MG TABLETS PO SCH (22:07)
[2021-04-09] MEDS: ONDANSETRON *ODT* 4 MG TABLET SL PRN (04:28)
[2021-04-09] MEDS: LORazepam 1 MG TABLET PO SCH ×4 (04:40→22:12)
[2021-04-09] MEDS: hydrOXYzine PAMOATE 25 MG CAPSULE (FP) PO SCH ×5 (06:07→22:12)
[2021-04-09] MEDS: METHOCARBAMOL 500 MG TABLET PO PRN ×2 (06:07→17:36)
[2021-04-09] MEDS: LORazepam 1 MG TABLET PO PRN ×3 (09:03→19:49)
[2021-04-09] MEDS ORDERED: methaDONE HCL 40 MG DISPERSABLE TABLET PO ONE (09:24)
[2021-04-09] MEDS: PRENATAL VITAMINS W/ FOLIC ACID TABLET (FP) PO SCH (10:43)
[2021-04-09 12:22] LABS: EPI CELLS 17 /uL (0-25.1); HYALINE CASTS 1 /uL (0-3.1); URINE APPEARANCE CLEAR; URINE BILIRUBIN 1+ (NEGATIVE); URINE COLOR DK YELLOW; URINE GLUCOSE (UA) NEGATIVE (NEGATIVE); URINE KETONE NEGATIVE (NEGATIVE); URINE LEUK ESTERASE NEGATIVE (NEGATIVE); URINE NITRITE POSITIVE (NEGATIVE); URINE PROTEIN TRACE (NEGATIVE); URINE RBC 14 /uL (0-23.9); URINE WBC 7 /uL (0-25.8)
[2021-04-09 13:09] LABS: URINE BACTERIA FEW /uL (0-1359)
[2021-04-09] MEDS: MELATONIN 5 MG TABLETS PO SCH (22:12)
[2021-04-09] MEDS: THIAMINE HCL 100 MG TABLET (FP) PO SCH (22:12)
[2021-04-10] MEDS ORDERED: LORazepam 0.5 MG TABLET PO PRN
[2021-04-10] MEDS: LORazepam 0.5 MG TABLET PO SCH ×4 (04:59→22:06)
[2021-04-10] MEDS: hydrOXYzine PAMOATE 25 MG CAPSULE (FP) PO SCH (05:00)
[2021-04-10] MEDS: METHOCARBAMOL 500 MG TABLET PO PRN (07:30)
[2021-04-10] MEDS ORDERED: methaDONE HCL 40 MG DISPERSABLE TABLET PO ONE (08:55)
[2021-04-10] MEDS: PRENATAL VITAMINS W/ FOLIC ACID TABLET (FP) PO SCH (10:11)
[2021-04-10 11:08] LABS: HEMATOCRIT 40.2 % (32.4-45.2); HEMOGLOBIN 13.9 GM/dL (10.7-15.3); MCH 34.1 pg (25.7-33.7); MCHC 34.7 g/dl (32.0-36.0); MEAN CELL VOLUME 98.3 fl (80-96); PLATELET COUNT 67 10^3/uL (134-434); RBC 4.09 M/mm3 (3.60-5.2); RDW 16.8 % (11.6-15.6); WHITE BLOOD COUNT 4.6 K/mm3 (4.0-10.0)
[2021-04-10 12:26] LABS: ALBUMIN 3.6 g/dl (3.4-5.0); BILIRUBIN,TOTAL 4.9 mg/dL (0.2-1); BLOOD UREA NITROGEN 8.8 mg/dL (7-18); CALCIUM 8.9 mg/dL (8.5-10.1); CREATININE 0.7 mg/dL (0.55-1.3); TOT PROT 9.1 g/dl (6.4-8.2)
[2021-04-10] MEDS: hydrOXYzine PAMOATE 25 MG CAPSULE (FP) PO PRN ×2 (17:34→22:06)
[2021-04-10] MEDS: THIAMINE HCL 100 MG TABLET (FP) PO SCH (22:05)
[2021-04-10] MEDS: MELATONIN 5 MG TABLETS PO SCH (22:05)
[2021-04-11] MEDS: hydrOXYzine PAMOATE 25 MG CAPSULE (FP) PO PRN ×2 (02:09→09:50)
[2021-04-11] MEDS ORDERED: LORazepam 0.5 MG TABLET PO ONE (05:00)
[2021-04-11] MEDS ORDERED: methaDONE HCL 40 MG DISPERSABLE TABLET PO SCH ×2 (06:00)
[2021-04-11 07:32] VITALS: PULSE 101
[2021-04-11 08:55] VITALS: BP 131/79; TEMP 96.7
[2021-04-11] MEDS: PRENATAL VITAMINS W/ FOLIC ACID TABLET (FP) PO SCH (10:37)
== END 2021-04-11 11:50 | disposition home or self-care (01) | DRG 773 ==
LOC: YASAS 14:09 → Y3N 16:43
PROVIDERS: ADMIT Allergy & Immunology; ATTEND Allergy & Immunology
PROC: HZ2ZZZZ Detoxification Services for Substance Abuse Treatment (ICD-10-PCS; principal; 2021-04-08)
DX: F10.230 Alcohol dependence with withdrawal, uncomplicated (principal); F11.20 Opioid dependence, uncomplicated; F19.24 Other psychoactive substance dependence with psychoactive substance-induced mood disorder; F41.9 Anxiety disorder, unspecified; E11.49 Type 2 diabetes mellitus with other diabetic neurological complication; Z79.4 Long term (current) use of insulin; E80.6 Other disorders of bilirubin metabolism; L40.0 Psoriasis vulgaris; M54.50 Low back pain, unspecified; G89.29 Other chronic pain; R82.998 Other abnormal findings in urine; Z96.651 Presence of right artificial knee joint; Z99.89 Dependence on other enabling machines and devices; Z88.2 Allergy status to sulfonamides; W08.XXXA Fall from other furniture, initial encounter; Y92.238 Other place in hospital as the place of occurrence of the external cause
CPT/HCPCS: 36415; 80053; 81003; 82962; 83036; 85027; 86780; 93005; 93010; C9803; Q0162; U0003; U0005

== ENCOUNTER 2021-04-08 18:14 | Emergency (ER) | payer OTHER ==
[2021-04-08 18:57] VITALS: BP 125/90; PULSE 86; TEMP 97; BMI 27.4
[2021-04-08] MEDS ORDERED: ACETAMINOPHEN 500 MG TABLET (FP) PO ONE (20:16)
[2021-04-08] MEDS ORDERED: ACETAMINOPHEN 325 MG TABLET (FP) ONE (20:40)
[2021-04-08] MEDS ORDERED: LORazepam 1 MG TABLET PO ONE (20:43)
== END 2021-04-08 21:11 | disposition short-term general hospital (02) ==
LOC: JER 18:14
DX: M25.551 Pain in right hip (principal); W06.XXXA Fall from bed, initial encounter
CPT/HCPCS: 73523-TC-FY; 73552-TC-RT-FY; 73590-TC-RT-FY; 93005; 93010; 99285-25

== ENCOUNTER 2022-03-11 12:06 | Inpatient (IN) | payer OTHER ==
[~2022-03-11 12:06] MED LIST changes: +FLU VACC QS2022-23(6MOS UP)/PF 60 MCG/0.5 ML SYRINGE IM ONE; -LOPERAMIDE HCL 2 MG CAPSULE PO PRN; -MAG HYDROX/AL HYDROX/SIMETH 30 ML UNIT-DOSE CUP PO PRN; -P-EPHED 60MG/TRIPROLIDI 2.5MG TABLET PO PRN; -guaiFENesin 200 MG/10 ML 10 ML UNIT-DOSE CUPS PO PRN
[2022-03-11 12:32] VITALS: BMI 28.3
[2022-03-11] MEDS ORDERED: LOPERAMIDE HCL 2 MG CAPSULE PO PRN (12:46)
[2022-03-11] MEDS ORDERED: MAGNESIUM HYDROX 2400MG/30ML ORAL SUSPENSION 30 ML CUP PO PRN (12:46)
[2022-03-11] MEDS ORDERED: MAG HYDROX/AL HYDROX/SIMETH 30 ML UNIT-DOSE CUP PO PRN (12:46)
[2022-03-11] MEDS ORDERED: BENZOCAINE/MENTHOL (CHLORASEPTIC ) LOZENGE MM PRN (12:46)
[2022-03-11] MEDS ORDERED: BISMUTH SUBSALICYLATE 524 MG/30 ML PO PRN (12:46)
[2022-03-11] MEDS ORDERED: NALOXONE HCL (KLOXXADO) 8 MG SPRAY NS PRN (12:46)
[2022-03-11] MEDS ORDERED: DICYCLOMINE HCL 10 MG CAPSULE PO PRN (12:46)
[2022-03-11] MEDS ORDERED: IBUPROFEN 600 MG TABLET (FP) PO PRN (12:46)
[2022-03-11] MEDS ORDERED: MAGNESIUM CITRATE 300 ML BOTTLE PO PRN (12:46)
[2022-03-11] MEDS ORDERED: ACETAMINOPHEN 325 MG TABLET (FP) PO PRN ×2 (12:46)
[2022-03-11] MEDS ORDERED: ONDANSETRON *ODT* 4 MG TABLET SL PRN (12:46)
[2022-03-11] MEDS ORDERED: IBUPROFEN 400 MG TABLET (FP) PO PRN (12:46)
[2022-03-11] MEDS ORDERED: LORazepam 1 MG TABLET ONE (13:34)
[2022-03-11] MEDS: LORazepam 1 MG TABLET PO PRN (13:36)
[2022-03-11] MEDS: GABAPENTIN 300 MG CAPSULE PO SCH ×2 (14:51→22:12)
[2022-03-11] MEDS: PRENATAL VITAMINS W/ FOLIC ACID TABLET (FP) PO SCH (14:51)
[2022-03-11 16:51] LABS: ALBUMIN 2.4 g/dl (3.4-5.0); BLOOD UREA NITROGEN 5.3 mg/dL (7-18)
[2022-03-11 16:54] LABS: CREATININE 0.5 mg/dL (0.55-1.3)
[2022-03-11 16:56] LABS: BILIRUBIN,TOTAL 4.6 mg/dL (0.2-1); TOT PROT 8.9 g/dl (6.4-8.2)
[2022-03-11 16:58] LABS: HEMOGLOBIN 13.3 GM/dL (10.7-15.3); MCH 33.4 pg (25.7-33.7); MCHC 33.2 g/dl (32.0-36.0); MEAN CELL VOLUME 100.5 fl (80-96); MEAN PLT VOLUME 8.6 fl (7.5-11.1); PLATELET COUNT 58 10^3/uL (134-434); RBC 3.98 M/mm3 (3.60-5.2); RDW 18.8 % (11.6-15.6); WHITE BLOOD COUNT 3.9 K/mm3 (4.0-10.0)
[2022-03-11] MEDS: LORazepam 2 MG TABLET PO SCH ×2 (17:11→22:12)
[2022-03-11] MEDS ORDERED: MELATONIN 5 MG TABLETS PO SCH (22:00)
[2022-03-11] MEDS: FLUOCINONIDE 0.05% TOP OINT (60 GM TUBE) TP SCH (22:12)
[2022-03-11] MEDS: THIAMINE HCL 100 MG TABLET (FP) PO SCH (22:12)
[2022-03-11] MEDS: MELATONIN 5 MG TABLETS PO SCH (22:13)
[2022-03-12] MEDS: LORazepam 1 MG TABLET PO PRN (02:05)
[2022-03-12] MEDS: hydrOXYzine PAMOATE 25 MG CAPSULE (FP) PO PRN (02:06)
[2022-03-12] MEDS: METHOCARBAMOL 500 MG TABLET PO PRN ×2 (02:06→17:02)
[2022-03-12] MEDS ORDERED: TRIMETHOBENZAMIDE HCL 200MG/2ML INJ IM ONE (02:28)
[2022-03-12] MEDS: methaDONE HCL 10 MG TABLET PO SCH (05:08)
[2022-03-12] MEDS: LORazepam 2 MG TABLET PO SCH ×4 (05:08→22:05)
[2022-03-12] MEDS: GABAPENTIN 300 MG CAPSULE PO SCH ×3 (05:08→22:05)
[2022-03-12] MEDS: HYDROCORTISONE 1% TOPICAL CREAM 30 GM TUBE TP SCH (10:22)
[2022-03-12] MEDS: PRENATAL VITAMINS W/ FOLIC ACID TABLET (FP) PO SCH (10:22)
[2022-03-12] MEDS: FLUOCINONIDE 0.05% TOP OINT (60 GM TUBE) TP SCH ×2 (10:22→22:04)
[2022-03-12] MEDS ORDERED: FLU VACC QS2022-23(6MOS UP)/PF 60 MCG/0.5 ML SYRINGE IM ONE (12:00)
[2022-03-12] MEDS: LACTULOSE 20 GM/30 ML UDC (FOR ORAL USE ONLY) PO SCH ×3 (13:42→22:04)
[2022-03-12] MEDS: THIAMINE HCL 100 MG TABLET (FP) PO SCH (22:05)
[2022-03-12] MEDS: MELATONIN 5 MG TABLETS PO SCH (22:05)
[2022-03-13] MEDS: GABAPENTIN 300 MG CAPSULE PO SCH ×3 (05:19→22:12)
[2022-03-13] MEDS: LORazepam 1 MG TABLET PO SCH ×4 (05:19→22:13)
[2022-03-13] MEDS: methaDONE HCL 10 MG TABLET PO SCH (05:25)
[2022-03-13] MEDS: LACTULOSE 20 GM/30 ML UDC (FOR ORAL USE ONLY) PO SCH ×4 (11:02→22:11)
[2022-03-13] MEDS: PRENATAL VITAMINS W/ FOLIC ACID TABLET (FP) PO SCH (11:02)
[2022-03-13] MEDS: FLUOCINONIDE 0.05% TOP OINT (60 GM TUBE) TP SCH ×2 (11:03→22:13)
[2022-03-13] MEDS: HYDROCORTISONE 1% TOPICAL CREAM 30 GM TUBE TP SCH (11:03)
[2022-03-13] MEDS: THIAMINE HCL 100 MG TABLET (FP) PO SCH (22:12)
[2022-03-13] MEDS: MELATONIN 5 MG TABLETS PO SCH (22:12)
[2022-03-14] MEDS ORDERED: LORazepam 0.5 MG TABLET PO PRN
[2022-03-14] MEDS: methaDONE HCL 10 MG TABLET PO SCH (05:07)
[2022-03-14] MEDS: GABAPENTIN 300 MG CAPSULE PO SCH ×3 (05:08→22:05)
[2022-03-14] MEDS: LORazepam 0.5 MG TABLET PO SCH ×4 (05:08→22:06)
[2022-03-14] MEDS: NICOTINE 10 MG CARTRIDGE (INHALER) IH PRN (05:34)
[2022-03-14] MEDS: PRENATAL VITAMINS W/ FOLIC ACID TABLET (FP) PO SCH (10:15)
[2022-03-14] MEDS: LACTULOSE 20 GM/30 ML UDC (FOR ORAL USE ONLY) PO SCH ×4 (10:15→22:05)
[2022-03-14] MEDS: FLUOCINONIDE 0.05% TOP OINT (60 GM TUBE) TP SCH ×2 (10:16→22:08)
[2022-03-14] MEDS: HYDROCORTISONE 1% TOPICAL CREAM 30 GM TUBE TP SCH (10:16)
[2022-03-14] MEDS: THIAMINE HCL 100 MG TABLET (FP) PO SCH (22:05)
[2022-03-14] MEDS: MELATONIN 5 MG TABLETS PO SCH (22:06)
[2022-03-15] MEDS: NICOTINE 10 MG CARTRIDGE (INHALER) IH PRN ×2 (00:20→07:52)
[2022-03-15] MEDS: hydrOXYzine PAMOATE 25 MG CAPSULE (FP) PO PRN (01:33)
[2022-03-15] MEDS: METHOCARBAMOL 500 MG TABLET PO PRN (01:33)
[2022-03-15] MEDS ORDERED: LORazepam 0.5 MG TABLET PO ONE (05:00)
[2022-03-15] MEDS: GABAPENTIN 300 MG CAPSULE PO SCH (05:14)
[2022-03-15] MEDS: methaDONE HCL 10 MG TABLET PO SCH (05:15)
[2022-03-15 09:07] VITALS: BP 123/66; PULSE 90; RESP 16; TEMP 98.2
[2022-03-15] MEDS: LACTULOSE 20 GM/30 ML UDC (FOR ORAL USE ONLY) PO SCH (10:18)
[2022-03-15] MEDS: PRENATAL VITAMINS W/ FOLIC ACID TABLET (FP) PO SCH (10:18)
[2022-03-15] MEDS: HYDROCORTISONE 1% TOPICAL CREAM 30 GM TUBE TP SCH (10:19)
[2022-03-15] MEDS: FLUOCINONIDE 0.05% TOP OINT (60 GM TUBE) TP SCH (10:19)
== END 2022-03-15 11:55 | disposition home or self-care (01) | DRG 773 ==
LOC: YASAS 12:06 → Y3N 14:01
PROVIDERS: ADMIT Allergy & Immunology; ATTEND Surgery
PROC: HZ2ZZZZ Detoxification Services for Substance Abuse Treatment (ICD-10-PCS; principal; 2022-03-11)
DX: F10.230 Alcohol dependence with withdrawal, uncomplicated (principal); F11.20 Opioid dependence, uncomplicated; F17.290 Nicotine dependence, other tobacco product, uncomplicated; F10.282 Alcohol dependence with alcohol-induced sleep disorder; F19.280 Other psychoactive substance dependence with psychoactive substance-induced anxiety disorder; F19.24 Other psychoactive substance dependence with psychoactive substance-induced mood disorder; F19.282 Other psychoactive substance dependence with psychoactive substance-induced sleep disorder; E72.20 Disorder of urea cycle metabolism, unspecified; K74.60 Unspecified cirrhosis of liver; M54.50 Low back pain, unspecified; G89.29 Other chronic pain; R74.01 Elevation of levels of liver transaminase levels; Z96.641 Presence of right artificial hip joint; Z86.39 Personal history of other endocrine, nutritional and metabolic disease; Z99.89 Dependence on other enabling machines and devices; Z88.2 Allergy status to sulfonamides
CPT/HCPCS: 36415; 80053; 82140; 82962; 85027; 86780; 87811; 93005; 93010; C9803-CS; G0008; Q0162; Q2036; U0003; U0005